=== PATIENT | female | born 1990 | race African-American/Black ===

== ENCOUNTER 2016-09-10 06:14 | Emergency (ER) | payer SELFPAY ==
[~2016-09-10] VITALS: Ht 160 cm; Wt 103.6 kg
[~2016-09-10 06:14] MED LIST: ALDACTONE 25MG25 M1 PO; AMOXICILLIN 8751 TAB PO; BACTRIM DS 8001 TAB PO; CATAPRES 0.1MG0.1 MG PO; CATAPRES0.2 MG PO; CATAPRES0.3 MG PO; CELLCEPT 250MG250 MG PO; CEPHALEXIN500 M1 PO; COUMADIN 22.5 MG/TAB PO; COUMADIN 5MG5 MG/TAB PO; COZAAR 50MG50 MG/TAB PO; DILAUDID 2MG TAB2 MG; LASIX 20MG TABL20 MG PO; LOVENOX120 MG/0.8 SC; MICROZIDE12.5 MG PO; MS CONTIN 115 MG/TAB PO; NEURONTIN300 MG/CAP PO; NORCO 325 MG-101 TAB PO; NORCO 325 MG-51 TAB PO; NORVASC 10MG10 MG PO; NORVASC 5MG5 MG/TAB PO; OXY IR5 MG PO; PERCOCET 325 MG1 TA2 PO; PHENERGAN 25 TA25 MG PO; PLAQUENIL 200M200 MG PO; PREDNISONE20 MG PO; PRINIVIL10 MG PO; ULTRAM 50MG TAB50 MG PO; ZOFRAN8 MG PO
[2016-09-10 06:16] VITALS: TEMP 99.3
[2016-09-10] MEDS ORDERED: PRINIVIL10 MG PO (07:10)
[2016-09-10] MEDS ORDERED: NORCO 325 MG-51 TAB PO (07:10)
[2016-09-10 07:54] LABS: MEAN CELL VOLUME 85 fl (80.0-100.0); MEAN CORPUSCULAR HGB CONC 31 g/dl (33.0-37.0); MEAN PLATELET VOLUME 11.7 fl (7.4-10.4); PLATELET COUNT 146 K/mm3 (130-400); RED BLOOD COUNT 3.67 M/mm3 (4.10-5.30); REDCELL DISTRIBUTION WIDTH-CV 15.2 % (11.5-14.5); WHITE BLOOD COUNT 4.2 K/mm3 (4.8-10.8)
[2016-09-10 08:03] LABS: PROTHROMBIN TIME 41.2 SECONDS (9.7-12.8)
[2016-09-10 08:06] LABS: INR 3.6 (0.8-3.0)
[2016-09-10 08:16] LABS: ADD PATHOLOGY DIFF REVIEW NO; HEMATOCRIT 31.1 % (37.0-47.0); HEMOGLOBIN 9.7 g/dl (12.5-16.0); MEAN CORPUSCULAR HEMOGLOBIN 26 pg (27.0-31.0)
[2016-09-10 08:21] LABS: BAND 14 % (0-10); EOSINOPHIL 2 % (0-4); NEUTROPHILS 62 % (42.0-75.2); TOTAL CELLS COUNTED 100
[2016-09-10 08:23] LABS: ALBUMIN 2.3 gm/dL (3.5-5.0); BILIRUBIN,TOTAL 0.4 mg/dL (0.0-1.0); C-REACTIVE PROTEIN 3.6 mg/dL (0.0-0.9); CALCIUM 7.6 mg/dL (8.4-10.2); CREATININE, serum 0.92 mg/dL (0.52-1.25); POTASSIUM 4.3 mmol/L (3.4-5.0); TOTAL PROTEIN 6.2 gm/dL (6.4-8.2)
[2016-09-10 08:31] LABS: TROPONIN-I 0.019 ng/mL (0.000-0.034)
[2016-09-10 10:04] VITALS: BP 140/99; PULSE 88
[2016-09-10 11:09] LABS: ERYTHROCYTE SEDIMENTATION RATE 95 mm/hr (0-20)
== END 2016-09-10 10:04 | disposition home or self-care (01) ==
LOC: COL.ER 06:14
PROVIDERS: Emergency Medicine
DX: R07.9 Chest pain, unspecified (principal); I10 Essential (primary) hypertension
CPT/HCPCS: J1170; J2405

== ENCOUNTER 2016-09-14 15:53 | Emergency (ER) | payer SELFPAY ==
[~2016-09-14] VITALS: Ht 160 cm; Wt 104.5 kg
[2016-09-14 15:55] VITALS: TEMP 99
[2016-09-14 16:45] LABS: INR 4.4 (0.8-3.0); PROTHROMBIN TIME 50.6 SECONDS (9.7-12.8)
[2016-09-14 16:55] LABS: ALBUMIN 2.5 gm/dL (3.5-5.0); BILIRUBIN,TOTAL 0.4 mg/dL (0.0-1.0); C-REACTIVE PROTEIN 6.2 mg/dL (0.0-0.9); CALCIUM 7.8 mg/dL (8.4-10.2); CREATININE, serum 1.02 mg/dL (0.52-1.25); MEAN CELL VOLUME 82 fl (80.0-100.0); MEAN CORPUSCULAR HGB CONC 32 g/dl (33.0-37.0); MEAN PLATELET VOLUME 11.5 fl (7.4-10.4); PLATELET COUNT 166 K/mm3 (130-400); POTASSIUM 4.5 mmol/L (3.4-5.0); RED BLOOD COUNT 3.78 M/mm3 (4.10-5.30); TOTAL PROTEIN 6.8 gm/dL (6.4-8.2); WHITE BLOOD COUNT 3.6 K/mm3 (4.8-10.8)
[2016-09-14 16:58] LABS: ADD PATHOLOGY DIFF REVIEW NO; HEMATOCRIT 30.9 % (37.0-47.0); HEMOGLOBIN 9.9 g/dl (12.5-16.0); MEAN CORPUSCULAR HEMOGLOBIN 26 pg (27.0-31.0)
[2016-09-14 17:04] LABS: TROPONIN-I 0.012 ng/mL (0.000-0.034)
[2016-09-14 17:34] LABS: BAND 2 % (0-10); NEUTROPHILS 70 % (42.0-75.2); TOTAL CELLS COUNTED 100
[2016-09-14 17:36] LABS: ANISOCYTOSIS 1+; HYPOCHROMIA 2+; MICROCYTOSIS 1+; ROULEAUX 1+
[2016-09-14] MEDS ORDERED: PREDNISONE10 MG PO (17:45)
[2016-09-14] MEDS ORDERED: NORCO 325 MG-51 TAB PO (17:45)
[2016-09-14 18:06] VITALS: BP 139/85; PULSE 98
== END 2016-09-14 18:06 | disposition home or self-care (01) ==
LOC: COL.ER 15:53
PROVIDERS: Family Medicine
DX: R07.89 Other chest pain (principal)
CPT/HCPCS: J1170; J1885; J2405; J7512

== ENCOUNTER 2016-11-08 23:43 | Emergency (ER) | payer MEDICAID ==
[~2016-11-08] VITALS: Ht 160 cm; Wt 99.1 kg
[~2016-11-08 23:43] MED LIST changes: +PREDNISONE10 MG PO
[2016-11-08 23:46] VITALS: TEMP 99
[2016-11-09 00:28] LABS: MEAN CELL VOLUME 84 fl (80.0-100.0); MEAN CORPUSCULAR HGB CONC 32 g/dl (33.0-37.0); MEAN PLATELET VOLUME 12.1 fl (7.4-10.4); PLATELET COUNT 185 K/mm3 (130-400); RED BLOOD COUNT 3.88 M/mm3 (4.10-5.30); REDCELL DISTRIBUTION WIDTH-CV 16.6 % (11.5-14.5)
[2016-11-09 00:34] LABS: ADD PATHOLOGY DIFF REVIEW NO; HEMATOCRIT 32.4 % (37.0-47.0); HEMOGLOBIN 10.2 g/dl (12.5-16.0); MEAN CORPUSCULAR HEMOGLOBIN 26 pg (27.0-31.0); PROTHROMBIN TIME 11.1 SECONDS (9.7-12.8)
[2016-11-09 00:37] LABS: ADJUSTED CALCIUM 9.1 mg/dL (8.4-10.2); ALBUMIN 3.1 gm/dL (3.5-5.0); BILIRUBIN,TOTAL 0.4 mg/dL (0.0-1.0); CALCIUM 8.4 mg/dL (8.4-10.2); CREATININE, serum 1.03 mg/dL (0.52-1.25); POTASSIUM 4.5 mmol/L (3.4-5.0); TOTAL PROTEIN 7.3 gm/dL (6.4-8.2)
[2016-11-09 00:47] LABS: ANISOCYTOSIS 1+; BAND 6 % (0-10); NEUTROPHILS 65 % (42.0-75.2); PLATELET ESTIMATE NORMAL (NORMAL); TOTAL CELLS COUNTED 100
[2016-11-09 00:49] LABS: TROPONIN-I 0.029 ng/mL (0.000-0.034)
[2016-11-09] MEDS ORDERED: COUMADIN 5MG5 MG/TAB PO (02:18)
[2016-11-09 03:23] VITALS: BP 158/58; PULSE 81
== END 2016-11-09 03:23 | disposition home or self-care (01) ==
LOC: COL.ER 23:43
PROVIDERS: Physician Assistant
DX: R07.9 Chest pain, unspecified (principal); I73.1 Thromboangiitis obliterans [Buerger's disease]; Z79.01 Long term (current) use of anticoagulants; J45.909 Unspecified asthma, uncomplicated; F17.210 Nicotine dependence, cigarettes, uncomplicated; Z89.022 Acquired absence of left finger(s)
CPT/HCPCS: J1170; J2270; J2405

== ENCOUNTER 2016-11-15 06:52 | Emergency (ER) | payer MEDICAID ==
[~2016-11-15] VITALS: Ht 160 cm; Wt 100.0 kg
[2016-11-15 07:38] LABS: MEAN CELL VOLUME 84 fl (80.0-100.0); MEAN CORPUSCULAR HGB CONC 32 g/dl (33.0-37.0); MEAN PLATELET VOLUME 11.5 fl (7.4-10.4); PLATELET COUNT 195 K/mm3 (130-400); RED BLOOD COUNT 3.66 M/mm3 (4.10-5.30); REDCELL DISTRIBUTION WIDTH-CV 15.9 % (11.5-14.5); WHITE BLOOD COUNT 3.7 K/mm3 (4.8-10.8)
[2016-11-15 07:45] LABS: INR 1.1 (0.8-3.0); PROTHROMBIN TIME 11.7 SECONDS (9.7-12.8)
[2016-11-15 07:48] LABS: PARTIAL THROMBOPLASTIN TIME 31.3 SECONDS (26.0-37.0)
[2016-11-15 07:50] LABS: ADJUSTED CALCIUM 9.2 mg/dL (8.4-10.2); ALBUMIN 2.6 gm/dL (3.5-5.0); BILIRUBIN,TOTAL 0.4 mg/dL (0.0-1.0); C-REACTIVE PROTEIN 8.8 mg/dL (0.0-0.9); CALCIUM 8.1 mg/dL (8.4-10.2); CREATININE, serum 1.06 mg/dL (0.52-1.25); POTASSIUM 4.2 mmol/L (3.4-5.0); TOTAL PROTEIN 6.9 gm/dL (6.4-8.2)
[2016-11-15 07:59] LABS: TROPONIN-I 0.014 ng/mL (0.000-0.034)
[2016-11-15 08:09] LABS: HEMATOCRIT 30.7 % (37.0-47.0); HEMOGLOBIN 9.7 g/dl (12.5-16.0); MEAN CORPUSCULAR HEMOGLOBIN 27 pg (27.0-31.0)
[2016-11-15 08:10] LABS: ADD PATHOLOGY DIFF REVIEW NO
[2016-11-15] MEDS ORDERED: NORCO 325 MG-51 TAB PO (08:24)
[2016-11-15] MEDS ORDERED: CARDIZEM CD 12120 MG PO (08:24)
[2016-11-15 08:53] VITALS: BP 141/91; PULSE 76; TEMP 98.6
[2016-11-15 09:28] LABS: ANISOCYTOSIS 2+; BAND 7 % (0-10); EOSINOPHIL 3 % (0-4); NEUTROPHILS 63 % (42.0-75.2); PLATELET ESTIMATE NORMAL (NORMAL); TOTAL CELLS COUNTED 100
== END 2016-11-15 08:40 | disposition home or self-care (01) ==
LOC: COL.ER 06:52
PROVIDERS: Family Medicine
DX: R07.9 Chest pain, unspecified (principal); R00.0 Tachycardia, unspecified; I73.1 Thromboangiitis obliterans [Buerger's disease]; Z79.01 Long term (current) use of anticoagulants
CPT/HCPCS: J1170; J2550; J7050; Q9967

== ENCOUNTER 2016-12-16 15:38 | Inpatient (IN) | payer MEDICAID ==
[~2016-12-16] VITALS: Ht 160 cm; Wt 104.6 kg
[~2016-12-16 15:38] MED LIST changes: +CARDIZEM CD 12120 MG PO
[2016-12-16 16:41] LABS: BASO % 0.5 % (0.0-2.0); EOS % 0.7 % (0-4.0); GRAN # 2.6 (1.4-6.5); GRAN % 59.6 % (42.2-75.2); LYMPH # 1.1 (1.2-3.4); LYMPH % 25.6 % (20.0-51.0); MEAN CELL VOLUME 85 fl (80.0-100.0); MEAN CORPUSCULAR HGB CONC 31 g/dl (33.0-37.0); MEAN PLATELET VOLUME 10.8 fl (7.4-10.4); MONO # 0.6 (0.1-0.6); MONO % 13.1 % (1.7-9.3); PLATELET COUNT 157 K/mm3 (130-400); RED BLOOD COUNT 3.58 M/mm3 (4.10-5.30); REDCELL DISTRIBUTION WIDTH-CV 16.7 % (11.5-14.5); WHITE BLOOD COUNT 4.3 K/mm3 (4.8-10.8)
[2016-12-16 16:43] LABS: INR 1.1 (0.8-3.0); PROTHROMBIN TIME 11.9 SECONDS (9.7-12.8)
[2016-12-16 16:46] LABS: PARTIAL THROMBOPLASTIN TIME 30.1 SECONDS (26.0-37.0)
[2016-12-16 16:47] LABS: ADJUSTED CALCIUM 8.8 mg/dL (8.4-10.2); ALBUMIN 2.5 gm/dL (3.5-5.0); BILIRUBIN,TOTAL 0.4 mg/dL (0.0-1.0); CALCIUM 7.6 mg/dL (8.4-10.2); CREATININE, serum 0.95 mg/dL (0.52-1.25); POTASSIUM 3.8 mmol/L (3.4-5.0); TOTAL PROTEIN 6.3 gm/dL (6.4-8.2)
[2016-12-16 16:48] LABS: HEMATOCRIT 30.3 % (37.0-47.0); HEMOGLOBIN 9.4 g/dl (12.5-16.0); MEAN CORPUSCULAR HEMOGLOBIN 26 pg (27.0-31.0)
[2016-12-16 16:58] LABS: TROPONIN-I 0.041 ng/mL (0.000-0.034)
[2016-12-16 17:07] LABS: ERYTHROCYTE SEDIMENTATION RATE 71 mm/hr (0-20)
[2016-12-16 20:45] VITALS: BP 125/81; PULSE 83; TEMP 97.2
[2016-12-16 20:49] VITALS: O2SAT 94
[2016-12-16 20:52] VITALS: O2SAT 97
[2016-12-16 20:54] VITALS: O2SAT 97
[2016-12-16 20:55] VITALS: O2SAT 67
[2016-12-16] MEDS ORDERED: PRINIVIL10 MG PO (21:24)
[2016-12-16] MEDS ORDERED: NORVASC2.5 MG PO (21:25)
[2016-12-16] MEDS ORDERED: PLAQUENIL 200M200 MG PO (21:26)
[2016-12-16] MEDS ORDERED: PEPCID40 MG PO (23:49)
[2016-12-17] VITALS (10 sets, daily range): BP systolic 116–137; BP diastolic 77–93; PULSE 76–95; TEMP 97.2–98.8; O2SAT 73–91
[2016-12-17 00:36] LABS: MAGNESIUM 1.6 mg/dL (1.6-2.3)
[2016-12-17 05:37] LABS: BASO % 0.3 % (0.0-2.0); EOS % 0.8 % (0-4.0); GRAN # 2.4 (1.4-6.5); GRAN % 61.5 % (42.2-75.2); LYMPH % 25.5 % (20.0-51.0); MEAN CELL VOLUME 86 fl (80.0-100.0); MEAN CORPUSCULAR HGB CONC 31 g/dl (33.0-37.0); MEAN PLATELET VOLUME 11.3 fl (7.4-10.4); MONO # 0.5 (0.1-0.6); MONO % 11.9 % (1.7-9.3); PLATELET COUNT 143 K/mm3 (130-400); RED BLOOD COUNT 3.34 M/mm3 (4.10-5.30); REDCELL DISTRIBUTION WIDTH-CV 16.6 % (11.5-14.5); WHITE BLOOD COUNT 3.9 K/mm3 (4.8-10.8)
[2016-12-17 05:46] LABS: HEMATOCRIT 28.7 % (37.0-47.0); HEMOGLOBIN 8.9 g/dl (12.5-16.0); MEAN CORPUSCULAR HEMOGLOBIN 27 pg (27.0-31.0)
[2016-12-17 05:47] LABS: PROTHROMBIN TIME 11.5 SECONDS (9.7-12.8)
[2016-12-17 06:07] LABS: CALCIUM 7.3 mg/dL (8.4-10.2); CREATININE, serum 0.81 mg/dL (0.52-1.25); POTASSIUM 3.9 mmol/L (3.4-5.0)
[2016-12-17 06:19] LABS: TROPONIN-I 0.033 ng/mL (0.000-0.034)
[2016-12-18 04:11] VITALS: BP 149/92; PULSE 94; TEMP 99.3
[2016-12-18 07:55] VITALS: BP 129/96; PULSE 93; TEMP 100.6
[2016-12-18 12:24] VITALS: BP 158/103; PULSE 105; TEMP 98.6
[2016-12-18] MEDS ORDERED: COLCRYS0.6 MG PO (14:05)
[2016-12-18] MEDS ORDERED: COUMADIN 5MG5 MG/TAB PO (14:05)
[2016-12-18] MEDS ORDERED: PREDNISONE20 MG PO (14:08)
[2016-12-18] MEDS ORDERED: PERCOCET 325 MG1 TA2 PO (14:09)
[2016-12-18] MEDS ORDERED: OXYCONTIN15 MG PO (14:09)
[2016-12-18 14:16] LABS: PH 6 (5-8); URINE APPEARANCE Hazy; URINE BACTERIA Rare /hpf; URINE BILIRUBIN Negative (NEGATIVE); URINE BLOOD 1+ (NEGATIVE); URINE COLOR Yellow; URINE GLUCOSE Negative (NEGATIVE); URINE KETONE Negative (NEGATIVE); URINE UROBILINOGEN Negative (NEGATIVE)
== END 2016-12-18 15:09 | disposition home or self-care (01) | DRG 313 ==
LOC: COL.ER 15:38 → ICU 19:55 → MEDICAL 19:55 → ICU 20:40 → MEDICAL 12-17 21:54
PROVIDERS: Emergency Medicine; Internal Medicine; Nurse Practitioner Family
DX: R07.89 Other chest pain (principal); I31.9 Disease of pericardium, unspecified; I10 Essential (primary) hypertension; I73.00 Raynaud's syndrome without gangrene; I73.1 Thromboangiitis obliterans [Buerger's disease]; D64.9 Anemia, unspecified; M32.14 Glomerular disease in systemic lupus erythematosus; Z87.891 Personal history of nicotine dependence; Z91.14 Patient's other noncompliance with medication regimen
CPT/HCPCS: 99223-AI; 99239; J1650; J2270; J2405; J3010; J7030; J7040; J7050; J7512; Q9967

== ENCOUNTER 2019-02-15 20:35 | Emergency (ER) | payer MEDICARE ==
[~2019-02-15] VITALS: Ht 160 cm; Wt 97.3 kg
[~2019-02-15 20:35] MED LIST changes: +COLCRYS0.6 MG PO; +NORVASC2.5 MG PO; +OXYCONTIN15 MG PO; +PEPCID40 MG PO
[2019-02-15 20:49] VITALS: TEMP 97
[2019-02-15 22:15] LABS: HEMATOCRIT 25.9 % (37.0-47.0); HEMOGLOBIN 7.7 g/dl (12.5-16.0); MEAN CELL VOLUME 87 fl (80.0-100.0); MEAN CORPUSCULAR HEMOGLOBIN 26 pg (27.0-31.0); MEAN CORPUSCULAR HGB CONC 30 g/dl (33.0-37.0); MEAN PLATELET VOLUME 9.7 fl (7.4-10.4); PLATELET COUNT 119 K/mm3 (130-400); RED BLOOD COUNT 2.97 M/mm3 (4.10-5.30); REDCELL DISTRIBUTION WIDTH-CV 18.3 % (11.5-14.5)
[2019-02-15 22:19] LABS: INR 0.9 (0.8-3.0); PROTHROMBIN TIME 10.3 SECONDS (9.7-12.8)
[2019-02-15 22:24] LABS: BILIRUBIN,TOTAL 0.2 mg/dL (0.0-1.0); CALCIUM 8.2 mg/dL (8.4-10.2); CREATININE, serum 2.34 (0.52-1.25); POTASSIUM 4.3 mmol/L (3.4-5.0); TOTAL PROTEIN 6.5 gm/dL (6.4-8.2)
[2019-02-15 22:43] LABS: ANISOCYTOSIS 1+; BAND 11 % (0-10); HYPOCHROMIA 1+; LYMPHOCYTE 20 % (20.0-51.0); NEUTROPHILS 60 % (42.0-75.2); PLATELET ESTIMATE DECREASED (NORMAL)
[2019-02-15 22:44] LABS: SCHISTOCYTES 1+
[2019-02-15 22:45] LABS: SPHEROCYTE 1+
[2019-02-15 22:46] LABS: TROPONIN-I 4.59 ng/mL (0.000-0.035)
[2019-02-16 00:51] VITALS: BP 161/96; PULSE 86
== END 2019-02-16 00:45 | disposition short-term general hospital (02) ==
LOC: COL.ER 20:35
PROVIDERS: Emergency Medicine
DX: I10 Essential (primary) hypertension (principal); R07.9 Chest pain, unspecified; D64.9 Anemia, unspecified; R79.89 Other specified abnormal findings of blood chemistry; Z89.022 Acquired absence of left finger(s); I73.00 Raynaud's syndrome without gangrene; Z87.891 Personal history of nicotine dependence
CPT/HCPCS: J0780; J1170; J1885; J7030; J7050

== ENCOUNTER 2019-02-21 21:25 | Observation (INO) | payer MEDICARE, MEDICAID ==
[~2019-02-21] VITALS: Ht 160 cm; Wt 99.9 kg
[2019-02-21 22:44] LABS: MEAN CELL VOLUME 87 fl (80.0-100.0); MEAN CORPUSCULAR HGB CONC 31 g/dl (33.0-37.0); MEAN PLATELET VOLUME 9.7 fl (7.4-10.4); PLATELET COUNT 173 K/mm3 (130-400); REDCELL DISTRIBUTION WIDTH-CV 18.7 % (11.5-14.5)
[2019-02-21 22:51] LABS: HEMOGLOBIN 8.3 g/dl (12.5-16.0); MEAN CORPUSCULAR HEMOGLOBIN 27 pg (27.0-31.0)
[2019-02-21 22:54] LABS: ALBUMIN 2.7 gm/dL (3.5-5.0); BILIRUBIN,TOTAL 0.1 mg/dL (0.0-1.0); C-REACTIVE PROTEIN 1.1 mg/dL (0.0-0.9); CALCIUM 7.4 mg/dL (8.4-10.2); CREATININE, serum 1.76 (0.52-1.25); POTASSIUM 3.7 mmol/L (3.4-5.0); TOTAL PROTEIN 5.9 gm/dL (6.4-8.2)
[2019-02-21 22:59] LABS: ANISOCYTOSIS 2+; BAND 1 % (0-10); EOSINOPHIL 1 % (0-4); LYMPHOCYTE 15 % (20.0-51.0); METAMYELOCYTE 1 % (0-0); NEUTROPHILS 73 % (42.0-75.2); PLATELET ESTIMATE NORMAL (NORMAL)
[2019-02-21 23:04] LABS: TROPONIN-I 2.13 ng/mL (0.000-0.035)
--- NOTE | 2019-02-22 04:00 | NUR ---
Phone report received from Priscilla DOOLEY in ED.
--- NOTE | 2019-02-22 04:10 | NUR ---
Pt arrived via WC from ED X1 staff assist. Pt ambulatory in room requesting use of the toilet. Admission assessment complete. Pt currently wearing personal pants and socks at this time. Moved freely with no weakness or unsteady ambulation noted at this time.
[2019-02-22] MEDS ORDERED: ZOLOFT 50MG50 MG PO (04:44)
[2019-02-22] MEDS ORDERED: DILAUDID 2MG TAB2 MG PO (04:45)
[2019-02-22] MEDS ORDERED: COREG 25MG25 MG/TAB PO (04:47)
[2019-02-22] MEDS ORDERED: CARDURA4 MG PO (04:48)
[2019-02-22] MEDS ORDERED: PREDNISONE20 MG PO (04:48)
[2019-02-22] MEDS ORDERED: COLCRYS0.6 MG PO (04:51)
[2019-02-22] MEDS ORDERED: ASPIRIN 81M81 MG/TA2 PO (04:52)
--- NOTE | 2019-02-22 05:20 | NUR ---
PRN dose of Fentanyl adminstered. Pt reports increased feeling of anxiety. When talking to pt, pt started to cry. This nurse offered other solutions including television, medication following phone call to auto parts salesperson provider, sitting with the pt, back rub, encouraging the pt to talk through feelings. Pt declined all offers except the medication reporting "I know I am okay, I will just wait for the medication to wear off. I know its from the fentanyl and it will wear off soon. I just hate feeling this way." Pt encouraged to call nurse with anything and call light with in reach.
[2019-02-22 05:59] LABS: BASO % 0.2 % (0.0-2.0); EOS % 0.4 % (0-4.0); GRAN # 4.4 (1.4-6.5); GRAN % 85.1 % (42.2-75.2); LYMPH # 0.5 (1.2-3.4); MEAN CELL VOLUME 88 fl (80.0-100.0); MEAN CORPUSCULAR HGB CONC 30 g/dl (33.0-37.0); MONO # 0.2 (0.1-0.6); MONO % 3.9 % (1.7-9.3); PLATELET COUNT 194 K/mm3 (130-400); RED BLOOD COUNT 3.13 M/mm3 (4.10-5.30); REDCELL DISTRIBUTION WIDTH-CV 18.7 % (11.5-14.5)
[2019-02-22 06:00] LABS: HEMATOCRIT 27.6 % (37.0-47.0); HEMOGLOBIN 8.2 g/dl (12.5-16.0); MEAN CORPUSCULAR HEMOGLOBIN 26 pg (27.0-31.0)
[2019-02-22 06:04] LABS: CALCIUM 7.5 mg/dL (8.4-10.2); CREATININE, serum 1.73 (0.52-1.25)
[2019-02-22 06:24] LABS: MAGNESIUM 1.4 mg/dL (1.6-2.3)
--- NOTE | 2019-02-22 07:45 | NUR ---
Bedside report provided to Shannan DOOLEY. Pt offered PO Dilaudid for reports of 8/10 chest pain. Pt refused requesting IV.
--- NOTE | 2019-02-22 07:50 | NUR ---
Pt taking off monitoring equipment, but placed back on by nurse and explained while she is in ICU she will need to be closely monitored and VS taken frequently; pt understood. Pt asking for IV dilaudid, hospitalist contacted to change PO dose to IV; pt got one IV dose of dilaudid. Pt has breakfast in room. 0845: Following administration of IV dilaudid, pt states pain went from 8/10 to 5/10. Pt sp02 is 98-100% on RA following removing NC. VSS. 1030: Pt EJ site dressing changed.
[2019-02-22 08:00] VITALS: BP 122/84; PULSE 71; TEMP 98.5
--- NOTE | 2019-02-22 08:15 | NUR ---
Pt states she always has intermittent tenderness behind bilateral calves. Currently she states bilat tenderness is present, but says its not bothering her to much; unable to rate pain on numeric scale.
[2019-02-22 08:22] VITALS: BP 145/100; PULSE 74; TEMP 98.6
--- NOTE | 2019-02-22 10:22 | NUR ---
SW met with the patient to discuss a discharge plan. The patient lives in [place] with her dad. The pt does not use DME and reports independence with ADLs. The pt's PCP is APRYL Tam and pt receives her medications from [facility]. The pt may need medication assistance upon discharge if insurance has not been activated. The pt does not have advanced directives in the EMR and was not interested in a DPOA-HC form. The pt plans to return home upon discharge. SW will continue to follow to assist with any discharge needs.
[2019-02-22 12:00] VITALS: BP 156/90; PULSE 75; TEMP 97.7
--- NOTE | 2019-02-22 12:16 | NUR ---
MANUAL BP CONDUCTED. PT TAKING OFF MONITOR EQUIPMENT. BP 156/90 ON RA.
[2019-02-22 16:00] VITALS: BP 120/99; PULSE 80; TEMP 97.7
--- NOTE | 2019-02-22 16:10 | NUR ---
PT D/C EDUCATION COMPLETED. PT AMBULATING IN ROOM. PT OFFERED W/C TO LEAVE DEPT/HOSPITAL. PT HAS FAMILY MEMBER IN ROOM WHO WILL BE DRIVING PT HOME. ALL DOCUMENTS SIGNED. PT RECEIVING VOUCHER FOR COLCHICINE MEDICATION (5 TABS PO BID).
--- NOTE | 2019-02-22 16:17 | NUR ---
The patient is to discharge home today, 02/22. SW provided a medication voucher to the patient. supervisor tumbling and rolling was informed.
[2019-02-22 16:25] VITALS: BP 134/94; PULSE 79; TEMP 97.9
--- NOTE | 2019-02-22 16:28 | NUR ---
PT DENIED W/C AND AMBULATED OUT ICU WITH FAMILY. PT HAS ALL PAPERWORK. PT PROVIDED SHORTS BY SOCIAL WORK. LEFT EJ IV D/C.
== END 2019-02-22 16:28 | disposition home or self-care (01) ==
LOC: COL.ER 21:25 → ICU 02-22 02:50
PROVIDERS: Emergency Medicine; Nurse Practitioner; ADMIT Hospitalist
DX: M32.12 Pericarditis in systemic lupus erythematosus (principal); I73.00 Raynaud's syndrome without gangrene; M32.14 Glomerular disease in systemic lupus erythematosus; D63.8 Anemia in other chronic diseases classified elsewhere; I15.0 Renovascular hypertension; I42.9 Cardiomyopathy, unspecified; I10 Essential (primary) hypertension; I73.1 Thromboangiitis obliterans [Buerger's disease]; Z89.022 Acquired absence of left finger(s); Z79.899 Other long term (current) drug therapy; Z87.891 Personal history of nicotine dependence; Z79.82 Long term (current) use of aspirin; K21.9 Gastro-esophageal reflux disease without esophagitis
CPT/HCPCS: G0378; J1170; J1200; J2405; J3010; J3475; J7512; J7517

== ENCOUNTER 2019-03-27 06:44 | Emergency (ER) | payer MEDICAID ==
[~2019-03-27] VITALS: Ht 152.4 cm; Wt 91.8 kg
[~2019-03-27 06:44] MED LIST changes: +ASPIRIN 81M81 MG/TA2 PO; +CARDURA4 MG PO; +COREG 25MG25 MG/TAB PO; +DILAUDID 2MG TAB2 MG PO; +ZOLOFT 50MG50 MG PO
[2019-03-27 06:48] VITALS: TEMP 98.4
[2019-03-27 07:26] LABS: BASO % 0.9 % (0.0-2.0); EOS # 0.1 (0.0-0.7); EOS % 1.8 % (0-4.0); GRAN % 60.1 % (42.2-75.2); LYMPH # 0.8 (1.2-3.4); LYMPH % 22.8 % (20.0-51.0); MEAN CELL VOLUME 86 fl (80.0-100.0); MEAN CORPUSCULAR HGB CONC 31 g/dl (33.0-37.0); MEAN PLATELET VOLUME 10.9 fl (7.4-10.4); MONO # 0.5 (0.1-0.6); MONO % 14.1 % (1.7-9.3); PLATELET COUNT 117 K/mm3 (130-400); RED BLOOD COUNT 3.44 M/mm3 (4.10-5.30); REDCELL DISTRIBUTION WIDTH-CV 16.7 % (11.5-14.5)
[2019-03-27 07:32] LABS: HEMATOCRIT 29.6 % (37.0-47.0); HEMOGLOBIN 9.1 g/dl (12.5-16.0); MEAN CORPUSCULAR HEMOGLOBIN 26 pg (27.0-31.0)
[2019-03-27 07:39] LABS: ALANINE AMINOTRANSFERASE < 6 U/L (9-52); ALBUMIN 3.1 gm/dL (3.5-5.0); ALKALINE PHOSPHATASE 75 U/L (50-136); ANION GAP 7 mmol/L (7-16); AST,SGOT 33 U/L (15-37); BILIRUBIN,TOTAL 0.2 mg/dL (0.0-1.0); BLOOD UREA NITROGEN 22 mg/dL (7-17); CALCIUM 8.4 mg/dL (8.4-10.2); CARBON DIOXIDE 19 mmol/L (22-30); CHLORIDE 112 mmol/L (98-107); CREATININE, serum 2.29 (0.52-1.25); GLUCOSE 83 mg/dL (74-106); LIPASE 71 U/L (23-300); MAGNESIUM 1.6 mg/dL (1.6-2.3); SODIUM 138 mmol/L (137-145); TOTAL PROTEIN 6.8 gm/dL (6.4-8.2)
[2019-03-27 07:50] LABS: ERYTHROCYTE SEDIMENTATION RATE > 140 mm/hr (0-20)
[2019-03-27] MEDS ORDERED: CELLCEPT 5500 MG/TAB PO (07:55)
[2019-03-27] MEDS ORDERED: DAPSONE 25MG TA25 MG PO (07:55)
[2019-03-27 08:28] LABS: COLLECTION METHOD CLEAN CATCH
[2019-03-27 08:43] LABS: MUCOUS Present /lpf; PH 6 (5-8); SQUAMOUS EPITHELIAL None Seen /hpf; URINE APPEARANCE Clear; URINE BACTERIA Rare /hpf; URINE BILIRUBIN Negative (NEGATIVE); URINE BLOOD 2+ (NEGATIVE); URINE COLOR Yellow; URINE GLUCOSE Negative (NEGATIVE); URINE KETONE Negative (NEGATIVE); URINE LEUKOCYTE ESTERASE Negative (NEGATIVE); URINE NITRATE Negative (NEGATIVE); URINE PROTEIN(semi-quant) 3+ (NEGATIVE); URINE UROBILINOGEN Negative (NEGATIVE)
[2019-03-27 10:21] VITALS: BP 155/96; PULSE 82
== END 2019-03-27 10:21 | disposition short-term general hospital (02) ==
LOC: COL.ER 06:44
PROVIDERS: Emergency Medicine
DX: M32.12 Pericarditis in systemic lupus erythematosus (principal); I73.1 Thromboangiitis obliterans [Buerger's disease]; N05.9 Unspecified nephritic syndrome with unspecified morphologic changes
CPT/HCPCS: J1170; J2930; J7030; J7050

== ENCOUNTER 2019-05-31 09:19 | Emergency (ER) | payer SELFPAY ==
[~2019-05-31] VITALS: Ht 160 cm; Wt 101.5 kg
[~2019-05-31 09:19] MED LIST changes: +CELLCEPT 5500 MG/TAB PO; +DAPSONE 25MG TA25 MG PO
[2019-05-31 09:22] VITALS: BP 214/109
[2019-05-31] MEDS ORDERED: NORVASC 5MG5 MG/TAB PO (09:29)
[2019-05-31] MEDS ORDERED: COREG12.5 MG PO (09:30)
[2019-05-31] MEDS ORDERED: PREDNISONE20 MG PO (09:30)
[2019-05-31] MEDS ORDERED: LIPITOR 40MG TA40 MG PO (09:31)
[2019-05-31 10:07] LABS: BASO % 0.1 % (0.0-2.0); EOS % 0.1 % (0-4.0); GRAN # 11.3 (1.4-6.5); LYMPH # 1.3 (1.2-3.4); LYMPH % 9.6 % (20.0-51.0); MEAN CELL VOLUME 88 fl (80.0-100.0); MEAN CORPUSCULAR HGB CONC 30 g/dl (33.0-37.0); MEAN PLATELET VOLUME 11.2 fl (7.4-10.4); MONO # 0.8 (0.1-0.6); MONO % 5.6 % (1.7-9.3); PLATELET COUNT 196 K/mm3 (130-400); RED BLOOD COUNT 3.66 M/mm3 (4.10-5.30); REDCELL DISTRIBUTION WIDTH-CV 17.2 % (11.5-14.5)
[2019-05-31 10:08] LABS: HEMATOCRIT 32.3 % (37.0-47.0); HEMOGLOBIN 9.8 g/dl (12.5-16.0); MEAN CORPUSCULAR HEMOGLOBIN 27 pg (27.0-31.0)
[2019-05-31 10:19] LABS: ALBUMIN 2.7 gm/dL (3.5-5.0); BILIRUBIN,TOTAL 0.2 mg/dL (0.0-1.0); C-REACTIVE PROTEIN 4.8 mg/dL (0.0-0.9); CALCIUM 7.9 mg/dL (8.4-10.2); CREATININE, serum 1.58 (0.52-1.25); TOTAL PROTEIN 5.4 gm/dL (6.4-8.2)
[2019-05-31] MEDS ORDERED: AMOXICILLIN 8751 TAB PO (10:56)
[2019-05-31] MEDS ORDERED: NORCO 325 MG-51 TAB PO (10:57)
[2019-05-31 11:12] VITALS: PULSE 87; TEMP 97.9
== END 2019-05-31 11:21 | disposition home or self-care (01) ==
LOC: COL.ER 09:19
PROVIDERS: Family Medicine
DX: J18.1 Lobar pneumonia, unspecified organism (principal); I10 Essential (primary) hypertension; Z87.39 Personal history of other diseases of the musculoskeletal system and connective tissue
CPT/HCPCS: J0696

== ENCOUNTER 2019-06-06 23:59 | Inpatient (IN) | payer MEDICARE ==
[~2019-06-06] VITALS: Ht 160 cm; Wt 100.6 kg
[~2019-06-06 23:59] MED LIST changes: +COREG12.5 MG PO; +LIPITOR 40MG TA40 MG PO
[2019-06-07 00:40] LABS: BASO % 0.4 % (0.0-2.0); EOS # 0.1 (0.0-0.7); EOS % 1.4 % (0-4.0); GRAN # 3.7 (1.4-6.5); GRAN % 64.3 % (42.2-75.2); HEMATOCRIT 32.1 % (37.0-47.0); HEMOGLOBIN 9.6 g/dl (12.5-16.0); LYMPH # 1.4 (1.2-3.4); LYMPH % 24.9 % (20.0-51.0); MEAN CELL VOLUME 87 fl (80.0-100.0); MEAN CORPUSCULAR HEMOGLOBIN 26 pg (27.0-31.0); MEAN CORPUSCULAR HGB CONC 30 g/dl (33.0-37.0); MEAN PLATELET VOLUME 10.1 fl (7.4-10.4); MONO # 0.4 (0.1-0.6); MONO % 7.2 % (1.7-9.3); PLATELET COUNT 270 K/mm3 (130-400); RED BLOOD COUNT 3.68 M/mm3 (4.10-5.30); REDCELL DISTRIBUTION WIDTH-CV 17.2 % (11.5-14.5)
[2019-06-07 01:00] LABS: BILIRUBIN,TOTAL 0.1 mg/dL (0.0-1.0); C-REACTIVE PROTEIN 0.6 mg/dL (0.0-0.9); CALCIUM 7.8 mg/dL (8.4-10.2); CREATININE, serum 1.91 (0.52-1.25); MAGNESIUM 1.4 mg/dL (1.6-2.3); TOTAL PROTEIN 5.8 gm/dL (6.4-8.2)
[2019-06-07 01:15] LABS: TROPONIN-I 0.131 ng/mL (0.000-0.035)
[2019-06-07 01:26] LABS: ERYTHROCYTE SEDIMENTATION RATE 38 mm/hr (0-20)
[2019-06-07 01:31] LABS: COLLECTION METHOD CLEAN CATCH
[2019-06-07 01:42] LABS: MUCOUS Present /lpf; PH 6 (5-8); SQUAMOUS EPITHELIAL 0-2 /hpf; URINE APPEARANCE Clear; URINE BACTERIA Rare /hpf; URINE BILIRUBIN Negative (NEGATIVE); URINE BLOOD 1+ (NEGATIVE); URINE COLOR Straw; URINE GLUCOSE Negative (NEGATIVE); URINE KETONE Negative (NEGATIVE); URINE LEUKOCYTE ESTERASE Negative (NEGATIVE); URINE NITRATE Negative (NEGATIVE); URINE PROTEIN(semi-quant) 2+ (NEGATIVE); URINE RBC 0-2 /hpf; URINE UROBILINOGEN Negative (NEGATIVE)
--- NOTE | 2019-06-07 08:30 | NUR ---
Patient to room 353 from ED. Patient oriented to room and call light. Assessment complete and charted. Patient A&O, rating pain all over body 02/04. IV CDI. VSS. BP hypertensive. No further needs expressed from patient. Call light within reach
[2019-06-07 09:11] VITALS: BP 167/92; PULSE 93; TEMP 97.1
[2019-06-07 18:29] VITALS: BP 206/111; PULSE 90; TEMP 98
--- NOTE | 2019-06-07 18:31 | NUR ---
Patient A&O. VSS, BP hypertensive and doctor aware. IV CDI. Patient reporting pain all over body and has been complaining that her pain is not under control. No reported chest pain. No further needs expressed from patient. Call light within reach
[2019-06-07 19:21] VITALS: BP 193/100; PULSE 89; TEMP 98.9
--- NOTE | 2019-06-07 19:32 | NUR ---
Pt resting in bed. No distress noted. Respirations even and unlabored. Lungs clear to ausculation. Abdomen soft, nontender. BS+. 1+ edema noted to BLE. Pt c/o pain 8/10 in "back, arms and legs". Pt states she is "puffy". INT to L AC. Telemetry in place. Pt denies further needs at this time .
--- NOTE | 2019-06-07 20:14 | NUR ---
Pt requesting PRN pain medication for generalized pain in "back, arms and legs". She describes it as aching/tight due to being "puffy". PRN Morphine given. Will reassess for effectiveness.
--- NOTE | 2019-06-07 20:39 | NUR ---
Dr. Daly called about patients elevated blood pressure 193/100. Orders received to increase frequency of PRN Hydralazine.
--- NOTE | 2019-06-07 21:39 | NUR ---
Pt reports that PRN Morphine helped decrease pain but it is increasing again to a 02/04. PRN Dilaudid given. will continue to monitor.
[2019-06-07 23:25] VITALS: BP 167/104; PULSE 98; TEMP 98.4
--- NOTE | 2019-06-08 04:20 | NUR ---
Pt c/o pain 8/10 - generalized, aching. Pt reports that pain medication does help "take the edge off" the pain, but it does not last very long. PRN pain medication given. Pt is alert and oriented.
[2019-06-08 06:55] LABS: EOS # 0.1 (0.0-0.7); EOS % 0.9 % (0-4.0); GRAN # 4.8 (1.4-6.5); GRAN % 72.1 % (42.2-75.2); LYMPH # 1.2 (1.2-3.4); LYMPH % 18.7 % (20.0-51.0); MEAN CELL VOLUME 87 fl (80.0-100.0); MEAN CORPUSCULAR HGB CONC 30 g/dl (33.0-37.0); MEAN PLATELET VOLUME 11.7 fl (7.4-10.4); MONO # 0.5 (0.1-0.6); MONO % 7.1 % (1.7-9.3); PLATELET COUNT 295 K/mm3 (130-400); RED BLOOD COUNT 3.48 M/mm3 (4.10-5.30); REDCELL DISTRIBUTION WIDTH-CV 17.2 % (11.5-14.5)
[2019-06-08 07:00] VITALS: BP 185/108
[2019-06-08 07:04] LABS: CALCIUM 7.8 mg/dL (8.4-10.2); CREATININE, serum 1.81 (0.52-1.25); POTASSIUM 3.9 mmol/L (3.4-5.0)
[2019-06-08 07:08] LABS: HEMATOCRIT 30.4 % (37.0-47.0); HEMOGLOBIN 9.1 g/dl (12.5-16.0); MEAN CORPUSCULAR HEMOGLOBIN 26 pg (27.0-31.0)
--- NOTE | 2019-06-08 07:10 | NUR ---
Pt sleeping this AM. She has rested periodically throughout the night with consistent compalints of pain- generalized. Blood pressure this AM is elevated. PRN blood pressure medication administered.
[2019-06-08 07:30] VITALS: BP 183/105; PULSE 91; TEMP 98.3
--- NOTE | 2019-06-08 08:42 | NUR ---
Pt awake and alert upon entry, some C/O pain, medications given for relief, shift assessments complete, left Pt call light in reach, bed in lowest position.
--- NOTE | 2019-06-08 10:16 | NUR ---
Initial visit; Patient thanked Reducing System Operator for looking in on her and offering God's blessings. Patient's family arrived demonstrating that Génesis has a support system.
[2019-06-08 11:50] VITALS: BP 167/92; PULSE 99; TEMP 98.7
[2019-06-08 16:18] VITALS: BP 152/89; PULSE 97; TEMP 99
--- NOTE | 2019-06-08 17:00 | NUR ---
Rail Engineer met with patient to discuss discharge planning. Patient lives in [place] with her two children ages 12 and 6. Patient states she sees Dr. Meeks at [facility] and also obtains medications from them with no difficulty. Patient reports independence with ADLS and has no DME. Patient does not have Advance Directives and is not interested in establishing at this time. Patient plans to return home upon discharge. No additional concerns at this time.
--- NOTE | 2019-06-08 18:19 | NUR ---
Pt restes in room today, some C/o pain throughout the day, medications were given for relief, VS have remained stable.
[2019-06-08 19:55] VITALS: BP 154/101; PULSE 97
--- NOTE | 2019-06-08 21:00 | NUR ---
Shift assessment complete. Patient in bed, awake. States pain is 7/10 in her back. Also states that her IV site was painful with the last administration of pain medication from day RN. IV site noted to be tender, ecchymotic, and slightly reddened. IV removed. New IV placed in left hand, with 2 attempts. Prn pain medication given per request. Denies further needs at this time. Will continue to monitor.
[2019-06-08 23:22] VITALS: BP 185/104; PULSE 94; TEMP 98.7
[2019-06-09] VITALS (9 sets, daily range): BP systolic 137–206; BP diastolic 83–110; PULSE 84–94; TEMP 98.5–98.7
--- NOTE | 2019-06-09 03:30 | NUR ---
HR 130's when ambulating per tele. HR currently 95 at rest. BP elevated at 179/110, with recheck of 206/105. Dr. Bates notified, antihypertensive ordered. Will administer and recheck BP. Patient denies chest pain, and states her back pain is much better. Will continue to monitor.
[2019-06-09 08:12] LABS: BASO % 0.3 % (0.0-2.0); EOS % 0.3 % (0-4.0); GRAN # 4.3 (1.4-6.5); GRAN % 67.3 % (42.2-75.2); HEMOGLOBIN 9.8 g/dl (12.5-16.0); LYMPH # 1.5 (1.2-3.4); LYMPH % 23.8 % (20.0-51.0); MEAN CELL VOLUME 89 fl (80.0-100.0); MEAN CORPUSCULAR HEMOGLOBIN 26 pg (27.0-31.0); MEAN CORPUSCULAR HGB CONC 30 g/dl (33.0-37.0); MEAN PLATELET VOLUME 11.2 fl (7.4-10.4); MONO # 0.4 (0.1-0.6); MONO % 6.9 % (1.7-9.3); PLATELET COUNT 308 K/mm3 (130-400); RED BLOOD COUNT 3.73 M/mm3 (4.10-5.30); REDCELL DISTRIBUTION WIDTH-CV 17.2 % (11.5-14.5)
--- NOTE | 2019-06-09 08:20 | NUR ---
Pt napping upon entry this morning, easily awakened, has some C/O pain, medications given, shift assessments complete, left Pt call light in reach, bed in lowest position.
[2019-06-09 08:34] LABS: CALCIUM 8.2 mg/dL (8.4-10.2); CREATININE, serum 1.83 (0.52-1.25); POTASSIUM 4.6 mmol/L (3.4-5.0)
--- NOTE | 2019-06-09 08:45 | NUR ---
Pt awake and alert this morning, talkative, has C/O pain / discomfort in his right knee, shift assessments complete, left Pt call light in reach, bed in lowest position.
--- NOTE | 2019-06-09 18:26 | NUR ---
Pt rested in the room today, had C/O pain throughout the day, VS have remained stable.
--- NOTE | 2019-06-09 21:10 | NUR ---
Pt sitting up in bed visiting per cell phone. Placed her phone aside while she was assessed. States pain is 8/10. Requesting IV pain med. Dilaudid 0.25mg given. Explained to pt that she will have to ask for pain med since they are ordered PRN. Takes HS meds. INT intact to L hand. Flushes well. UA obtained and sent to lab. Request and given sun. henrique. Tele with SR. Call light within reach.
[2019-06-09 23:12] LABS: URINE PROTEIN:CREAT RATIO 5.86 (0.00-0.14)
[2019-06-10 03:50] VITALS: BP 155/86; PULSE 73
--- NOTE | 2019-06-10 06:18 | NUR ---
Pt asleep on right side. INT remains intact to L hand. O2 on at 2L/NC. Tele with SR. Call light in reach.
--- NOTE | 2019-06-10 06:56 | NUR ---
appears to be sleeping, bedside shift report received from MIAH Guevara
[2019-06-10 08:04] LABS: CALCIUM 8.4 mg/dL (8.4-10.2); CREATININE, serum 1.79 (0.52-1.25); POTASSIUM 4.6 mmol/L (3.4-5.0)
--- NOTE | 2019-06-10 08:40 | NUR ---
c/o pain, medicated with dilaudid 0.25mg slow IV, full assessment completed, see interventions for further info
[2019-06-10 09:43] VITALS: BP 173/108; PULSE 66; TEMP 98.5
[2019-06-10 09:53] VITALS: BP 136/86
--- NOTE | 2019-06-10 10:19 | NUR ---
in bed and appears to be sleeping, lights off, eyes closed, resp quiet and easy
[2019-06-10] MEDS ORDERED: NORVASC 10MG10 MG PO (10:53)
[2019-06-10] MEDS ORDERED: CATAPRES 0.1MG0.1 MG PO (10:53)
[2019-06-10] MEDS ORDERED: COZAAR 25MG25 MG/TAB PO (10:53)
[2019-06-10] MEDS ORDERED: HYGROTON 2525 MG/TAB PO (10:55)
[2019-06-10] MEDS ORDERED: NORCO 325 MG-51 TAB PO (10:58)
--- NOTE | 2019-06-10 11:01 | NUR ---
Dr Daly and care team in to see patient, will plan discharge later
[2019-06-10 11:42] VITALS: BP 112/66; PULSE 77; TEMP 98
--- NOTE | 2019-06-10 13:29 | NUR ---
sitting up in bed eating lunch, will plan to discharge when sister arrives soon
--- NOTE | 2019-06-10 14:05 | NUR ---
TELEMETRY DISCONTINUED, UP AND GETTING DRESSED
--- NOTE | 2019-06-10 14:10 | NUR ---
discharge instructions given to patient and she verbalizes understanding, instructed to her wait and someone would walk her out
--- NOTE | 2019-06-10 14:20 | NUR ---
EXPERIMENTAL TECHNICIAN entered room to walk patient out and patient was already gone
== END 2019-06-10 14:20 | disposition home or self-care (01) | DRG 546 ==
LOC: COL.ER 23:59 → MEDICAL 06-07 07:30
PROVIDERS: Emergency Medicine; Internal Medicine Nephrology; Nurse Practitioner Family; ADMIT Student in an Organized Health Care Education/Training Program
DX: M32.12 Pericarditis in systemic lupus erythematosus (principal); J90 Pleural effusion, not elsewhere classified; I73.1 Thromboangiitis obliterans [Buerger's disease]; I73.00 Raynaud's syndrome without gangrene; M32.14 Glomerular disease in systemic lupus erythematosus; I25.10 Atherosclerotic heart disease of native coronary artery without angina pectoris; I27.20 Pulmonary hypertension, unspecified; D64.9 Anemia, unspecified; I51.7 Cardiomegaly; R79.89 Other specified abnormal findings of blood chemistry; I16.0 Hypertensive urgency; Z87.01 Personal history of pneumonia (recurrent); Z89.112 Acquired absence of left hand; Z87.891 Personal history of nicotine dependence
CPT/HCPCS: 99222-AI; 99232-AI; 99239; J1170; J1644; J2270; J2405; J7512; J7517

== ENCOUNTER 2019-08-12 19:01 | Emergency (ER) | payer MEDICARE ==
[~2019-08-12] VITALS: Ht 160 cm; Wt 86.4 kg
[~2019-08-12 19:01] MED LIST changes: +COZAAR 25MG25 MG/TAB PO; +HYGROTON 2525 MG/TAB PO
[2019-08-12 19:21] VITALS: BP 147/82
[2019-08-12 20:00] LABS: COLLECTION METHOD CLEAN CATCH
[2019-08-12 20:06] LABS: PH 6 (5-8); SQUAMOUS EPITHELIAL 0-2 /hpf; URINE APPEARANCE Hazy; URINE BACTERIA None Seen /hpf; URINE BILIRUBIN Negative (NEGATIVE); URINE BLOOD Negative (NEGATIVE); URINE COLOR Yellow; URINE GLUCOSE Negative (NEGATIVE); URINE KETONE Negative (NEGATIVE); URINE LEUKOCYTE ESTERASE 1+ (NEGATIVE); URINE NITRATE Negative (NEGATIVE); URINE PROTEIN(semi-quant) 2+ (NEGATIVE); URINE UROBILINOGEN Negative (NEGATIVE)
[2019-08-12] MEDS ORDERED: FLAGYL 375375 MG PO (21:13)
[2019-08-12] MEDS ORDERED: MACROBID 1100 MG/CAP PO (21:44)
[2019-08-12 22:00] VITALS: PULSE 75; TEMP 98.4
== END 2019-08-12 22:00 | disposition home or self-care (01) ==
LOC: COL.ER 19:01
PROVIDERS: Family Medicine
DX: N76.0 Acute vaginitis (principal); B96.89 Other specified bacterial agents as the cause of diseases classified elsewhere
CPT/HCPCS: J0696

== ENCOUNTER 2019-08-26 12:03 | Emergency (ER) | payer MEDICARE ==
[~2019-08-26] VITALS: Ht 160 cm; Wt 86.4 kg
[~2019-08-26 12:03] MED LIST changes: +FLAGYL 375375 MG PO; +MACROBID 1100 MG/CAP PO
[2019-08-26 12:20] VITALS: TEMP 98
[2019-08-26 13:07] LABS: BASO % 0.5 % (0.0-2.0); EOS # 0.1 (0.0-0.7); EOS % 2.3 % (0-4.0); GRAN # 2.4 (1.4-6.5); GRAN % 61.9 % (42.2-75.2); LYMPH # 0.9 (1.2-3.4); LYMPH % 23.8 % (20.0-51.0); MEAN CELL VOLUME 87 fl (80.0-100.0); MEAN CORPUSCULAR HGB CONC 30 g/dl (33.0-37.0); MEAN PLATELET VOLUME 11.1 fl (7.4-10.4); MONO # 0.4 (0.1-0.6); MONO % 10.7 % (1.7-9.3); PLATELET COUNT 228 K/mm3 (130-400); RED BLOOD COUNT 3.15 M/mm3 (4.10-5.30); REDCELL DISTRIBUTION WIDTH-CV 18.6 % (11.5-14.5)
[2019-08-26 13:08] LABS: HEMATOCRIT 27.3 % (37.0-47.0); HEMOGLOBIN 8.1 g/dl (12.5-16.0); MEAN CORPUSCULAR HEMOGLOBIN 26 pg (27.0-31.0)
[2019-08-26 13:18] LABS: COLLECTION METHOD CLEAN CATCH
[2019-08-26 13:20] LABS: ALANINE AMINOTRANSFERASE < 6 U/L (9-52); ALBUMIN 3.1 gm/dL (3.5-5.0); ALKALINE PHOSPHATASE 60 U/L (50-136); ANION GAP 6 mmol/L (7-16); AST,SGOT 20 U/L (15-37); BILIRUBIN,TOTAL 0.2 mg/dL (0.0-1.0); BLOOD UREA NITROGEN 24 mg/dL (7-17); CALCIUM 7.8 mg/dL (8.4-10.2); CARBON DIOXIDE 18 mmol/L (22-30); CHLORIDE 117 mmol/L (98-107); CREATININE, serum 1.73 (0.52-1.25); GLUCOSE 86 mg/dL (74-106); POTASSIUM 4.5 mmol/L (3.4-5.0); SODIUM 141 mmol/L (137-145); TOTAL PROTEIN 6.5 gm/dL (6.4-8.2)
[2019-08-26 13:23] LABS: C-REACTIVE PROTEIN < 0.5 mg/dL (0.0-0.9)
[2019-08-26 13:24] LABS: MUCOUS Present /lpf; PH 6 (5-8); URINE APPEARANCE Clear; URINE BACTERIA Rare /hpf; URINE BILIRUBIN Negative (NEGATIVE); URINE BLOOD 1+ (NEGATIVE); URINE COLOR Yellow; URINE GLUCOSE Negative (NEGATIVE); URINE KETONE Negative (NEGATIVE); URINE LEUKOCYTE ESTERASE Negative (NEGATIVE); URINE NITRATE Negative (NEGATIVE); URINE PROTEIN(semi-quant) 2+ (NEGATIVE); URINE RBC 0-2 /hpf; URINE UROBILINOGEN Negative (NEGATIVE)
[2019-08-26 13:42] LABS: TROPONIN-I 0.144 ng/mL (0.000-0.035)
[2019-08-26 13:52] LABS: ERYTHROCYTE SEDIMENTATION RATE 102 mm/hr (0-20)
[2019-08-26 17:38] VITALS: BP 169/72; PULSE 71
== END 2019-08-26 17:38 | disposition short-term general hospital (02) ==
LOC: COL.ER 12:03
PROVIDERS: Emergency Medicine
DX: I31.9 Disease of pericardium, unspecified (principal); R79.89 Other specified abnormal findings of blood chemistry; I10 Essential (primary) hypertension
CPT/HCPCS: J1170; J2405

== ENCOUNTER 2019-09-20 02:42 | Emergency (ER) | payer MEDICARE ==
[~2019-09-20] VITALS: Ht 160 cm; Wt 93.2 kg
[2019-09-20 02:58] VITALS: BP 179/93; PULSE 99; TEMP 99
[2019-09-20] MEDS ORDERED: ATARAX 25MG25 MG/TAB PO (03:24)
== END 2019-09-20 03:45 | disposition home or self-care (01) ==
LOC: COL.ER 02:42
DX: F41.0 Panic disorder [episodic paroxysmal anxiety] (principal); F17.210 Nicotine dependence, cigarettes, uncomplicated

== ENCOUNTER 2019-12-29 10:37 | Emergency (ER) | payer MEDICARE ==
[~2019-12-29] VITALS: Ht 160 cm; Wt 88.6 kg
[~2019-12-29 10:37] MED LIST changes: +ATARAX 25MG25 MG/TAB PO
[2019-12-29 10:41] VITALS: TEMP 97.2
[2019-12-29 11:06] LABS: BASO % 0.3 % (0.0-2.0); EOS # 0.1 (0.0-0.7); EOS % 2.5 % (0-4.0); GRAN # 2.1 (1.4-6.5); GRAN % 63.5 % (42.2-75.2); LYMPH # 0.7 (1.2-3.4); LYMPH % 22.3 % (20.0-51.0); MEAN CELL VOLUME 83 fl (80.0-100.0); MEAN CORPUSCULAR HGB CONC 29 g/dl (33.0-37.0); MEAN PLATELET VOLUME 10.5 fl (7.4-10.4); MONO # 0.4 (0.1-0.6); MONO % 11.1 % (1.7-9.3); PLATELET COUNT 184 K/mm3 (130-400); RED BLOOD COUNT 3.98 M/mm3 (4.10-5.30); REDCELL DISTRIBUTION WIDTH-CV 16.6 % (11.5-14.5)
[2019-12-29 11:07] LABS: HEMOGLOBIN 9.7 g/dl (12.5-16.0); MEAN CORPUSCULAR HEMOGLOBIN 24 pg (27.0-31.0)
[2019-12-29 11:08] LABS: PROTHROMBIN TIME 10.8 SECONDS (9.7-12.8)
[2019-12-29 11:11] LABS: PARTIAL THROMBOPLASTIN TIME 34.6 SECONDS (26.0-37.0)
[2019-12-29 11:18] LABS: ALBUMIN 3.7 gm/dL (3.5-5.0); BILIRUBIN,TOTAL 0.4 mg/dL (0.0-1.0); C-REACTIVE PROTEIN 1.5 mg/dL (0.0-0.9); CALCIUM 9.1 mg/dL (8.4-10.2); CREATININE, serum 2.05 (0.52-1.25); POTASSIUM 4.6 mmol/L (3.4-5.0); TOTAL PROTEIN 7.8 gm/dL (6.4-8.2)
[2019-12-29 11:28] LABS: TROPONIN-I 0.53 ng/mL (0.000-0.035)
[2019-12-29 11:30] LABS: ERYTHROCYTE SEDIMENTATION RATE 88 mm/hr (0-20)
[2019-12-29 13:35] VITALS: BP 146/83; PULSE 83
== END 2019-12-29 13:35 | disposition short-term general hospital (02) ==
LOC: COL.ER 10:37
PROVIDERS: Family Medicine
DX: N18.9 Chronic kidney disease, unspecified (principal); I73.1 Thromboangiitis obliterans [Buerger's disease]; M32.9 Systemic lupus erythematosus, unspecified; I10 Essential (primary) hypertension
CPT/HCPCS: J1170; J2405

== ENCOUNTER 2020-02-20 13:39 | Inpatient (IN) | payer MEDICARE ==
[~2020-02-20] VITALS: Ht 160 cm; Wt 90.4 kg
[2020-02-20 14:32] LABS: ALBUMIN 3.7 gm/dL (3.5-5.0); BASO % 0.4 % (0.0-2.0); BILIRUBIN,TOTAL 0.3 mg/dL (0.0-1.0); CALCIUM 8.8 mg/dL (8.4-10.2); CREATININE, serum 2.48 (0.52-1.25); EOS # 0.1 (0.0-0.7); EOS % 2.7 % (0-4.0); GRAN # 3.1 (1.4-6.5); GRAN % 63.8 % (42.2-75.2); LYMPH # 0.9 (1.2-3.4); LYMPH % 19.2 % (20.0-51.0); MEAN CELL VOLUME 84 fl (80.0-100.0); MEAN CORPUSCULAR HGB CONC 30 g/dl (33.0-37.0); MEAN PLATELET VOLUME 12.3 fl (7.4-10.4); MONO # 0.6 (0.1-0.6); MONO % 12.9 % (1.7-9.3); PLATELET COUNT 260 K/mm3 (130-400); POTASSIUM 4.6 mmol/L (3.4-5.0); RED BLOOD COUNT 3.91 M/mm3 (4.10-5.30); REDCELL DISTRIBUTION WIDTH-CV 16.9 % (11.5-14.5); TOTAL PROTEIN 7.8 gm/dL (6.4-8.2)
[2020-02-20 14:45] LABS: TROPONIN-I 2.19 ng/mL (0.000-0.035)
[2020-02-20 14:47] LABS: HEMATOCRIT 32.9 % (37.0-47.0); HEMOGLOBIN 9.9 g/dl (12.5-16.0); MEAN CORPUSCULAR HEMOGLOBIN 25 pg (27.0-31.0)
--- NOTE | 2020-02-20 17:00 | NUR ---
Patient arrives from ER, report from MIAH Goel. VS obtained, see documentation. Patient states her chest pain is becoming more intense, rates "03/07". Kathy Begum [facility] customer marketing manager updated and household assistant notified of patient report. [id number]- supervisor special effects states that patient will be moved to medical floor.
--- NOTE | 2020-02-20 18:00 | NUR ---
Report to MIAH Dahl on medical. Patient transferred to room 358 by drain technician.
[2020-02-20 18:12] VITALS: BP 141/94; PULSE 73; TEMP 98.5
--- NOTE | 2020-02-20 18:45 | NUR ---
Patient to room 358 by wheelchair from L&D. Patient A&Ox3. Reporting chest pain. Pain medication given when requested. VSS. IV CDI. Oriented patient to room, call light and location. Also visitor policy. No further needs expressed from patient. Call light within reach
--- NOTE | 2020-02-20 20:00 | NUR ---
Report received, assumed care for machinist 2nd shift. Assessment compete. VS stable. A&Ox3. Laying in bed watching tv. Denies nausea/shortness of breath. Tolerating diet. C/O pain to upper abdominal quadrants-rating 8/10 on pain scale-described as constant ache. Plan of care discussed for pain medication/HS medications. Denies questions concerns. Call light in reach. Will monitor.
[2020-02-21 01:18] VITALS: BP 142/75; PULSE 56; TEMP 98.3
[2020-02-21 02:08] LABS: COLLECTION METHOD CLEAN CATCH
[2020-02-21 02:28] LABS: MUCOUS Present /lpf; PH 6 (5-8); URINE APPEARANCE Hazy; URINE BACTERIA Rare /hpf; URINE BILIRUBIN Negative (NEGATIVE); URINE BLOOD Negative (NEGATIVE); URINE COLOR Yellow; URINE GLUCOSE 1+ (NEGATIVE); URINE KETONE Negative (NEGATIVE); URINE LEUKOCYTE ESTERASE Trace (NEGATIVE); URINE NITRATE Negative (NEGATIVE); URINE PROTEIN(semi-quant) 3+ (NEGATIVE); URINE UROBILINOGEN Negative (NEGATIVE)
--- NOTE | 2020-02-21 03:40 | NUR ---
Called with c/o itching. Requesting Benadryl. Dr Bates notified and new orders received and initiated. Discussed change in medication with patient who is irritated and stating she needs the dilaudid for pain. Discussed changing to morphine but still irritated because can only have it every 3 hours instead of every two. Did calm down after learning that morphine may work better for pain than the dilaudid. Will continue to monitor.
[2020-02-21 03:53] VITALS: BP 154/84; PULSE 81; TEMP 98.3
--- NOTE | 2020-02-21 05:40 | NUR ---
Called with c/o IV pump keeping her up and not being able to rest. Refused IV fluids at this time. Will monitor.
[2020-02-21 07:26] VITALS: BP 131/63; PULSE 64; TEMP 98.2
--- NOTE | 2020-02-21 08:29 | NUR ---
Patient alert and oriented, answers questions appropriately. See assessment. Patient dozes off frequently during assessment, each time awakens requests pain medication. States "morphine isn't helping, I need more dilaudid." Notified patient of doctors orders regarding pain medication. Patient then requests zofran. Patient notified zofran is not part of patients medication orders, but I could notify doctor of patients request. When asked, patient denies nausea, but wants the medication "just in case". Reviewed medications with patient. No other c/o at this time.
[2020-02-21 09:30] LABS: BASO % 0.4 % (0.0-2.0); EOS # 0.1 (0.0-0.7); EOS % 2.7 % (0-4.0); GRAN % 68.2 % (42.2-75.2); LYMPH # 0.8 (1.2-3.4); LYMPH % 18.9 % (20.0-51.0); MEAN CELL VOLUME 85 fl (80.0-100.0); MEAN CORPUSCULAR HGB CONC 30 g/dl (33.0-37.0); MEAN PLATELET VOLUME 12.2 fl (7.4-10.4); MONO # 0.4 (0.1-0.6); MONO % 9.4 % (1.7-9.3); PLATELET COUNT 224 K/mm3 (130-400); RED BLOOD COUNT 3.43 M/mm3 (4.10-5.30); REDCELL DISTRIBUTION WIDTH-CV 16.9 % (11.5-14.5)
[2020-02-21 09:31] LABS: HEMOGLOBIN 8.7 g/dl (12.5-16.0); MEAN CORPUSCULAR HEMOGLOBIN 25 pg (27.0-31.0)
[2020-02-21 09:41] LABS: CALCIUM 8.5 mg/dL (8.4-10.2); CREATININE, serum 2.4 (0.52-1.25); POTASSIUM 4.4 mmol/L (3.4-5.0)
[2020-02-21 11:02] VITALS: BP 131/79; PULSE 71; TEMP 98.4
--- NOTE | 2020-02-21 11:02 | NUR ---
SW met with patient to complete intake. Patient states that she lives in [place], [place] with her children. Patient provides that her emergency contact is her sister Ofe [phone]. Patient provides that she does not utilize any DME and is independent with ADL's. Patient states that her PCP is Dr. Meeks, she obtains her medications from [facility], and that she is able to afford her medications. Patient provides that she does not have a DPOA-HC and does not wish to appoint one at this time. Patient provides that she plans to go back home upon discharge when she feels better, she states that she does have transportation upon discharge and has no questions or concerns at this time. SW will continue to follow.
[2020-02-21 15:59] VITALS: BP 143/86; PULSE 66; TEMP 98.8
--- NOTE | 2020-02-21 19:00 | NUR ---
24hour urine collection container in bathroom, awaiting first void.
[2020-02-21 20:00] VITALS: BP 145/90; PULSE 71; TEMP 99.9
--- NOTE | 2020-02-21 20:00 | NUR ---
PATIENT REQUESTED PAIN MEDUCATIONS AND KEPT HAVING DIFFICULTY WITH IV SITE, LEAKS, ATTEMPTS TO EVALUATE IV ALL RUNNING WELL
--- NOTE | 2020-02-21 23:45 | NUR ---
Pt assessment completed, charted, alert, oriented, roomair, independent. Meds provided as per SEP, tolerated well. I/V flushed without complications. PRN pain meds provided as per SEP. No further needs at this time.
[2020-02-22 04:45] VITALS: BP 135/74; PULSE 63; TEMP 98.6
--- NOTE | 2020-02-22 07:47 | NUR ---
Pt had an uneventful night, slept on and off through out the night. Morning meds provided as per SEP. Handover given to the day shift nurse.
[2020-02-22 07:54] LABS: BASO % 0.2 % (0.0-2.0); EOS # 0.1 (0.0-0.7); EOS % 2.1 % (0-4.0); GRAN # 3.6 (1.4-6.5); GRAN % 67.3 % (42.2-75.2); LYMPH # 0.9 (1.2-3.4); MEAN CELL VOLUME 84 fl (80.0-100.0); MEAN CORPUSCULAR HGB CONC 31 g/dl (33.0-37.0); MEAN PLATELET VOLUME 10.8 fl (7.4-10.4); MONO # 0.7 (0.1-0.6); MONO % 13.2 % (1.7-9.3); PLATELET COUNT 181 K/mm3 (130-400); RED BLOOD COUNT 3.32 M/mm3 (4.10-5.30); REDCELL DISTRIBUTION WIDTH-CV 16.6 % (11.5-14.5)
[2020-02-22 07:56] LABS: HEMATOCRIT 27.9 % (37.0-47.0); HEMOGLOBIN 8.5 g/dl (12.5-16.0); MEAN CORPUSCULAR HEMOGLOBIN 26 pg (27.0-31.0)
[2020-02-22 07:58] LABS: CALCIUM 8.2 mg/dL (8.4-10.2); CREATININE, serum 2.3 (0.52-1.25); POTASSIUM 4.2 mmol/L (3.4-5.0)
[2020-02-22 08:00] VITALS: BP 146/85; PULSE 62; TEMP 98.1
--- NOTE | 2020-02-22 08:00 | NUR ---
Shift assessment complete at this time. Plan of care reviewed at bedside with patient. Additional time taken to address any other needs or concerns. Vitals stable at this time. Pt reports L chest pain at 6/10 severity. Will administer PRN morphine per orders, see eMAR. Pt endorses no other discomforts. Vitals stable at this time. Bed in low position, call light within reach, will continue to monitor.
[2020-02-22 08:14] LABS: TROPONIN-I 2.24 ng/mL (0.000-0.035)
[2020-02-22 11:59] VITALS: BP 140/78; PULSE 70; TEMP 98.4
--- NOTE | 2020-02-22 12:00 | NUR ---
Pt resting in bed. Reports improved chest pain after administration of PRN Dilaudid. Vitals stable at this time. Bed in low position, call light within reach, will continue to monitor.
--- NOTE | 2020-02-22 13:06 | NUR ---
Initial visit; Patient thanked Practical Ministries Professor for looking in on her and offering God's blessings.
--- NOTE | 2020-02-22 14:13 | NUR ---
sitting up in bed and had lunch, alert and oriented, skin warm and dry and color normal, heart rate strong and regular and lungs CTA, abdomen soft and non distended and bowel sounds present in 4 quads, peripheral pulses present in 4 extremities, denies needs at this time
--- NOTE | 2020-02-22 16:20 | NUR ---
resting in bed, c/o pain 03/07 and medicated with dilaudid 1mg slow IV, states this did a good job with relieving the pain the last time, Dacia Burrell APRN in to see patient,
[2020-02-22 16:32] VITALS: BP 137/72; PULSE 65; TEMP 98.1
--- NOTE | 2020-02-22 17:06 | NUR ---
states pain is better since having dilaudid, unsure of urinary output during this shift as patient as been going to bathroom independently and empties into 24 hour container
--- NOTE | 2020-02-22 18:48 | NUR ---
bedside shift report given to MIAH Joyce
[2020-02-22 22:00] VITALS: BP 135/70; PULSE 70
[2020-02-23 04:00] VITALS: BP 140/75; PULSE 68; TEMP 98.4
[2020-02-23 05:53] LABS: URINE 24 HOUR CREATININE 1.5 gm/24 hr (0.8-1.8)
[2020-02-23 07:16] VITALS: BP 145/90; PULSE 74; TEMP 98.7
--- NOTE | 2020-02-23 07:41 | NUR ---
Pt assessment complileted, charted, alert, oriented, roomair, independent. Meds provided as per SEP. I/V line flushed without complications. PRN pain meds given on pt request. Slept through out the night. Call light on reach. No further needs at this time. Handover given to day shgift nurse.
[2020-02-23 09:20] LABS: LYMPH # 0.4 (1.2-3.4); LYMPH % 9.4 % (20.0-51.0); MEAN CELL VOLUME 85 fl (80.0-100.0); MEAN CORPUSCULAR HGB CONC 30 g/dl (33.0-37.0); MEAN PLATELET VOLUME 10.8 fl (7.4-10.4); MONO % 0.9 % (1.7-9.3); PLATELET COUNT 205 K/mm3 (130-400); RED BLOOD COUNT 3.69 M/mm3 (4.10-5.30); REDCELL DISTRIBUTION WIDTH-CV 16.5 % (11.5-14.5)
[2020-02-23 09:21] LABS: HEMATOCRIT 31.2 % (37.0-47.0); HEMOGLOBIN 9.5 g/dl (12.5-16.0); MEAN CORPUSCULAR HEMOGLOBIN 26 pg (27.0-31.0)
[2020-02-23 09:29] LABS: CALCIUM 8.7 mg/dL (8.4-10.2); CREATININE, serum 2.47 (0.52-1.25); POTASSIUM 5.3 mmol/L (3.4-5.0)
--- NOTE | 2020-02-23 11:02 | NUR ---
Full Stack Net Developer attended clinical rounds with the team. The patient may be transferring to [facility] in [place]. Will continue to monitor.
[2020-02-23 11:49] VITALS: BP 145/90; PULSE 74; TEMP 98.7
[2020-02-23 12:24] VITALS: BP 144/88; PULSE 70; TEMP 98.7
== END 2020-02-23 12:30 | disposition critical access hospital (66) | DRG 546 ==
LOC: COL.ER 13:39 → SURG 15:35 → MEDICAL 18:39
PROVIDERS: Internal Medicine Adult Congenital Heart Disease; Internal Medicine Nephrology; Nurse Practitioner; ADMIT Student in an Organized Health Care Education/Training Program
DX: M32.12 Pericarditis in systemic lupus erythematosus (principal); N17.9 Acute kidney failure, unspecified; I50.22 Chronic systolic (congestive) heart failure; I42.9 Cardiomyopathy, unspecified; R79.89 Other specified abnormal findings of blood chemistry; E16.2 Hypoglycemia, unspecified; M32.14 Glomerular disease in systemic lupus erythematosus; E86.0 Dehydration; I11.0 Hypertensive heart disease with heart failure; I73.1 Thromboangiitis obliterans [Buerger's disease]; I73.00 Raynaud's syndrome without gangrene; Z87.891 Personal history of nicotine dependence
CPT/HCPCS: 99222-AI; 99233-AI; 99239; J1170; J1644; J2270; J2405; J7040; J7120; J7512; J7517

== ENCOUNTER 2020-05-25 07:47 | Emergency (ER) | payer MEDICARE ==
[~2020-05-25] VITALS: Ht 160 cm; Wt 90.9 kg
[~2020-05-25 07:47] MED LIST changes: +APRESOLINE 10MG10 MG PO; +ASPIRIN E.C. 8181 MG PO; +ISORDIL 10MG10 MG PO; +KEPPRA 500MG500 MG PO; +OMNICEF 300MG300 MG PO; +TOPROL XL 25MG25 MG PO; +ZOLOFT 100MG100 MG PO
[2020-05-25 07:53] VITALS: TEMP 98.7
[2020-05-25 08:33] LABS: BASO % 0.4 % (0.0-2.0); EOS # 0.1 (0.0-0.7); EOS % 1.6 % (0-4.0); GRAN # 5.3 (1.4-6.5); GRAN % 78.3 % (42.2-75.2); LYMPH # 0.8 (1.2-3.4); MEAN CELL VOLUME 85 fl (80.0-100.0); MEAN CORPUSCULAR HGB CONC 30 g/dl (33.0-37.0); MEAN PLATELET VOLUME 10.9 fl (7.4-10.4); MONO # 0.5 (0.1-0.6); MONO % 7.3 % (1.7-9.3); PLATELET COUNT 194 K/mm3 (130-400); RED BLOOD COUNT 3.45 M/mm3 (4.10-5.30); REDCELL DISTRIBUTION WIDTH-CV 16.8 % (11.5-14.5)
[2020-05-25 08:35] LABS: HEMATOCRIT 29.2 % (37.0-47.0); HEMOGLOBIN 8.7 g/dl (12.5-16.0); MEAN CORPUSCULAR HEMOGLOBIN 25 pg (27.0-31.0)
[2020-05-25 08:38] LABS: ALANINE AMINOTRANSFERASE 8 U/L (4-34); ALBUMIN 3.6 gm/dL (3.5-5.0); ALKALINE PHOSPHATASE 90 U/L (50-136); ANION GAP 8 mmol/L (7-16); AST,SGOT 25 U/L (15-37); BILIRUBIN,TOTAL 0.2 mg/dL (0.0-1.0); BLOOD UREA NITROGEN 33 mg/dL (7-17); CARBON DIOXIDE 18 mmol/L (22-30); CHLORIDE 114 mmol/L (98-107); CREATININE, serum 2.26 (0.52-1.25); GLUCOSE 88 mg/dL (74-106); LIPASE 69 U/L (23-300); MAGNESIUM 1.4 mg/dL (1.6-2.3); POTASSIUM 4.9 mmol/L (3.4-5.0); SODIUM 140 mmol/L (137-145); TOTAL PROTEIN 7.2 gm/dL (6.4-8.2)
[2020-05-25 08:45] LABS: C-REACTIVE PROTEIN < 0.5 mg/dL (0.0-0.9)
[2020-05-25 08:49] LABS: TROPONIN-I 0.551 ng/mL (0.000-0.035)
[2020-05-25 08:54] LABS: INR 0.9 (0.8-3.0); PROTHROMBIN TIME 10.5 SECONDS (9.7-12.8)
[2020-05-25 09:48] LABS: ERYTHROCYTE SEDIMENTATION RATE 63 mm/hr (0-20)
[2020-05-25] MEDS ORDERED: COLCRYS0.6 MG PO (13:45)
[2020-05-25] MEDS ORDERED: PERCOCET 325 MG1 TA2 PO (13:45)
[2020-05-25 14:12] VITALS: BP 133/88; PULSE 80
== END 2020-05-25 14:06 | disposition home or self-care (01) ==
LOC: COL.ER 07:47
PROVIDERS: Emergency Medicine
DX: I31.9 Disease of pericardium, unspecified (principal); I13.0 Hypertensive heart and chronic kidney disease with heart failure and stage 1 through stage 4 chronic kidney disease, or unspecified chronic kidney disease; G40.909 Epilepsy, unspecified, not intractable, without status epilepticus; N18.9 Chronic kidney disease, unspecified; Z86.73 Personal history of transient ischemic attack (TIA), and cerebral infarction without residual deficits; Z79.82 Long term (current) use of aspirin
CPT/HCPCS: J1170; J2550

== ENCOUNTER 2020-05-28 09:50 | Emergency (ER) | payer MEDICARE ==
[~2020-05-28] VITALS: Ht 160 cm; Wt 90.9 kg
[2020-05-28 10:32] LABS: BASO % 0.3 % (0.0-2.0); EOS # 0.1 (0.0-0.7); EOS % 1.6 % (0-4.0); GRAN # 4.7 (1.4-6.5); LYMPH # 0.9 (1.2-3.4); LYMPH % 15.1 % (20.0-51.0); MEAN CELL VOLUME 84 fl (80.0-100.0); MEAN CORPUSCULAR HGB CONC 30 g/dl (33.0-37.0); MONO # 0.4 (0.1-0.6); MONO % 6.7 % (1.7-9.3); PLATELET COUNT 158 K/mm3 (130-400); RED BLOOD COUNT 3.51 M/mm3 (4.10-5.30); REDCELL DISTRIBUTION WIDTH-CV 16.4 % (11.5-14.5)
[2020-05-28 10:42] LABS: HEMATOCRIT 29.4 % (37.0-47.0); HEMOGLOBIN 8.8 g/dl (12.5-16.0); MEAN CORPUSCULAR HEMOGLOBIN 25 pg (27.0-31.0)
[2020-05-28 10:47] LABS: ALBUMIN 3.5 gm/dL (3.5-5.0); BILIRUBIN,TOTAL 0.2 mg/dL (0.0-1.0); C-REACTIVE PROTEIN 3.4 mg/dL (0.0-0.9); CALCIUM 8.4 mg/dL (8.4-10.2); CREATININE, serum 2.46 (0.52-1.25); POTASSIUM 4.5 mmol/L (3.4-5.0)
[2020-05-28 10:57] LABS: TROPONIN-I 0.413 ng/mL (0.000-0.035)
[2020-05-28] MEDS ORDERED: PERCOCET 325 MG1 TA3 PO (11:04)
[2020-05-28] MEDS ORDERED: MEDROL 4MG DOSPA4 MG PO (11:08)
[2020-05-28 11:20] LABS: ERYTHROCYTE SEDIMENTATION RATE 88 mm/hr (0-20)
[2020-05-28 12:57] VITALS: BP 133/86; PULSE 78; TEMP 98.2
== END 2020-05-28 12:57 | disposition home or self-care (01) ==
LOC: COL.ER 09:50
PROVIDERS: Emergency Medicine
DX: I31.9 Disease of pericardium, unspecified (principal); M32.9 Systemic lupus erythematosus, unspecified; N18.9 Chronic kidney disease, unspecified; D64.9 Anemia, unspecified; Z86.73 Personal history of transient ischemic attack (TIA), and cerebral infarction without residual deficits; Z79.82 Long term (current) use of aspirin
CPT/HCPCS: J1170; J2405; J7030

== ENCOUNTER 2020-06-01 12:42 | Emergency (ER) | payer MEDICARE ==
[~2020-06-01] VITALS: Ht 160 cm; Wt 90.9 kg
[~2020-06-01 12:42] MED LIST changes: +MEDROL 4MG DOSPA4 MG PO; +PERCOCET 325 MG1 TA3 PO
[2020-06-01 12:56] VITALS: TEMP 97.8
[2020-06-01 14:55] LABS: BASO % 0.5 % (0.0-2.0); EOS # 0.1 (0.0-0.7); EOS % 1.3 % (0-4.0); GRAN # 4.6 (1.4-6.5); GRAN % 72.9 % (42.2-75.2); LYMPH # 1.1 (1.2-3.4); LYMPH % 17.6 % (20.0-51.0); MEAN CELL VOLUME 84 fl (80.0-100.0); MEAN CORPUSCULAR HGB CONC 30 g/dl (33.0-37.0); MONO # 0.5 (0.1-0.6); MONO % 7.4 % (1.7-9.3); PLATELET COUNT 258 K/mm3 (130-400); RED BLOOD COUNT 3.95 M/mm3 (4.10-5.30); REDCELL DISTRIBUTION WIDTH-CV 16.5 % (11.5-14.5)
[2020-06-01 14:58] LABS: HEMOGLOBIN 9.8 g/dl (12.5-16.0); MEAN CORPUSCULAR HEMOGLOBIN 25 pg (27.0-31.0)
[2020-06-01 15:03] LABS: ALANINE AMINOTRANSFERASE 7 U/L (4-34); ALKALINE PHOSPHATASE 95 U/L (50-136); ANION GAP 10 mmol/L (7-16); AST,SGOT 19 U/L (15-37); BILIRUBIN,TOTAL 0.3 mg/dL (0.0-1.0); BLOOD UREA NITROGEN 31 mg/dL (7-17); CALCIUM 8.9 mg/dL (8.4-10.2); CARBON DIOXIDE 19 mmol/L (22-30); CHLORIDE 112 mmol/L (98-107); CREATININE, serum 2.25 (0.52-1.25); GLUCOSE 92 mg/dL (74-106); LIPASE 44 U/L (23-300); SODIUM 140 mmol/L (137-145); TOTAL PROTEIN 7.8 gm/dL (6.4-8.2)
[2020-06-01 15:07] LABS: C-REACTIVE PROTEIN < 0.5 mg/dL (0.0-0.9)
[2020-06-01 15:15] LABS: TROPONIN-I 0.132 ng/mL (0.000-0.035)
[2020-06-01 16:13] VITALS: BP 144/95; PULSE 92
[2020-06-02] MEDS ORDERED: OMNICEF 300MG300 MG PO (15:12)
== END 2020-06-01 16:30 | disposition home or self-care (01) ==
LOC: COL.ER 12:42
PROVIDERS: Emergency Medicine
DX: I09.2 Chronic rheumatic pericarditis (principal); I10 Essential (primary) hypertension; G40.909 Epilepsy, unspecified, not intractable, without status epilepticus; Z86.73 Personal history of transient ischemic attack (TIA), and cerebral infarction without residual deficits; Z79.82 Long term (current) use of aspirin
CPT/HCPCS: J1100; J1170; J1200; J2405

== ENCOUNTER 2020-06-02 11:52 | Emergency (ER) | payer MEDICARE ==
[~2020-06-02] VITALS: Ht 160 cm; Wt 90.9 kg
[2020-06-02 12:09] VITALS: TEMP 99
[2020-06-02 13:33] LABS: COLLECTION METHOD CLEAN CATCH
[2020-06-02 13:38] LABS: BASO % 0.1 % (0.0-2.0); EOS % 0.2 % (0-4.0); GRAN # 6.2 (1.4-6.5); HEMOGLOBIN 10.2 g/dl (12.5-16.0); LYMPH # 1.6 (1.2-3.4); MEAN CELL VOLUME 84 fl (80.0-100.0); MEAN CORPUSCULAR HEMOGLOBIN 25 pg (27.0-31.0); MEAN CORPUSCULAR HGB CONC 30 g/dl (33.0-37.0); MEAN PLATELET VOLUME 9.5 fl (7.4-10.4); MONO # 0.9 (0.1-0.6); MONO % 10.5 % (1.7-9.3); PLATELET COUNT 257 K/mm3 (130-400); RED BLOOD COUNT 4.07 M/mm3 (4.10-5.30); REDCELL DISTRIBUTION WIDTH-CV 16.6 % (11.5-14.5)
[2020-06-02 13:50] LABS: MUCOUS Present /lpf; PH 5 (5-8); URINE APPEARANCE Cloudy; URINE BACTERIA Rare /hpf; URINE BILIRUBIN Negative (NEGATIVE); URINE BLOOD Negative (NEGATIVE); URINE COLOR Yellow; URINE GLUCOSE 1+ (NEGATIVE); URINE KETONE Negative (NEGATIVE); URINE LEUKOCYTE ESTERASE 3+ (NEGATIVE); URINE NITRATE Negative (NEGATIVE); URINE PROTEIN(semi-quant) 3+ (NEGATIVE); URINE RBC 20-50 /hpf; URINE UROBILINOGEN Negative (NEGATIVE)
[2020-06-02 13:51] LABS: ALANINE AMINOTRANSFERASE 12 U/L (4-34); ALBUMIN 4.1 gm/dL (3.5-5.0); ALKALINE PHOSPHATASE 97 U/L (50-136); ANION GAP 10 mmol/L (7-16); AST,SGOT 20 U/L (15-37); BILIRUBIN,TOTAL 0.2 mg/dL (0.0-1.0); BLOOD UREA NITROGEN 34 mg/dL (7-17); CARBON DIOXIDE 19 mmol/L (22-30); CHLORIDE 111 mmol/L (98-107); CREATININE, serum 2.41 (0.52-1.25); GLUCOSE 93 mg/dL (74-106); LIPASE 30 U/L (23-300); POTASSIUM 4.1 mmol/L (3.4-5.0); SODIUM 140 mmol/L (137-145)
[2020-06-02 13:55] LABS: C-REACTIVE PROTEIN < 0.5 mg/dL (0.0-0.9)
[2020-06-02 14:01] LABS: TROPONIN-I 0.085 ng/mL (0.000-0.035)
[2020-06-02] MEDS ORDERED: OMNICEF 300MG300 MG PO (15:12)
[2020-06-02 15:39] VITALS: BP 131/79; PULSE 69
== END 2020-06-02 15:32 | disposition home or self-care (01) ==
LOC: COL.ER 11:52
PROVIDERS: Family Medicine
DX: R10.9 Unspecified abdominal pain (principal); N39.0 Urinary tract infection, site not specified; R11.2 Nausea with vomiting, unspecified; Z79.82 Long term (current) use of aspirin
CPT/HCPCS: J0696; J1170; J2405; J2550; J3010; J7120

== ENCOUNTER 2020-06-06 09:11 | Emergency (ER) | payer MEDICARE ==
[~2020-06-06] VITALS: Ht 160 cm; Wt 9.1 kg
[2020-06-06 09:22] VITALS: TEMP 98.4
[2020-06-06 13:24] LABS: BASO % 0.3 % (0.0-2.0); EOS # 0.2 (0.0-0.7); EOS % 3.2 % (0-4.0); GRAN # 4.6 (1.4-6.5); GRAN % 70.9 % (42.2-75.2); LYMPH # 0.9 (1.2-3.4); LYMPH % 13.7 % (20.0-51.0); MEAN CELL VOLUME 85 fl (80.0-100.0); MEAN CORPUSCULAR HGB CONC 30 g/dl (33.0-37.0); MEAN PLATELET VOLUME 12.2 fl (7.4-10.4); MONO # 0.7 (0.1-0.6); MONO % 10.8 % (1.7-9.3); PLATELET COUNT 257 K/mm3 (130-400); RED BLOOD COUNT 3.42 M/mm3 (4.10-5.30); REDCELL DISTRIBUTION WIDTH-CV 16.8 % (11.5-14.5)
[2020-06-06 13:26] LABS: HEMATOCRIT 28.9 % (37.0-47.0); HEMOGLOBIN 8.6 g/dl (12.5-16.0); MEAN CORPUSCULAR HEMOGLOBIN 25 pg (27.0-31.0)
[2020-06-06 13:44] LABS: ALANINE AMINOTRANSFERASE 6 U/L (4-34); ALBUMIN 3.4 gm/dL (3.5-5.0); ALKALINE PHOSPHATASE 81 U/L (50-136); ANION GAP 6 mmol/L (7-16); AST,SGOT 19 U/L (15-37); BILIRUBIN,TOTAL 0.2 mg/dL (0.0-1.0); BLOOD UREA NITROGEN 31 mg/dL (7-17); CALCIUM 8.4 mg/dL (8.4-10.2); CARBON DIOXIDE 20 mmol/L (22-30); CHLORIDE 112 mmol/L (98-107); CREATININE, serum 1.89 (0.52-1.25); GLUCOSE 80 mg/dL (74-106); POTASSIUM 4.8 mmol/L (3.4-5.0); SODIUM 138 mmol/L (137-145); TOTAL PROTEIN 6.8 gm/dL (6.4-8.2)
[2020-06-06 13:46] LABS: C-REACTIVE PROTEIN < 0.5 mg/dL (0.0-0.9)
[2020-06-06 13:50] LABS: ERYTHROCYTE SEDIMENTATION RATE 61 mm/hr (0-20)
[2020-06-06 14:01] LABS: TROPONIN-I 0.092 ng/mL (0.000-0.035)
[2020-06-06] MEDS ORDERED: PERCOCET 325 MG1 TA2 PO (15:34)
[2020-06-06 15:56] VITALS: BP 130/90; PULSE 73
== END 2020-06-06 15:58 | disposition home or self-care (01) ==
LOC: COL.ER 09:11
PROVIDERS: Emergency Medicine
DX: R07.9 Chest pain, unspecified (principal); G89.29 Other chronic pain; Z79.82 Long term (current) use of aspirin; Z32.02 Encounter for pregnancy test, result negative
CPT/HCPCS: J1170; J2405

== ENCOUNTER 2020-06-10 08:44 | Emergency (ER) | payer MEDICARE ==
[~2020-06-10] VITALS: Ht 160 cm; Wt 90.9 kg
[2020-06-10 08:50] VITALS: TEMP 98.3
[2020-06-10 09:47] LABS: BASO % 0.5 % (0.0-2.0); EOS # 0.1 (0.0-0.7); EOS % 2.5 % (0-4.0); GRAN # 2.2 (1.4-6.5); GRAN % 55.1 % (42.2-75.2); LYMPH % 24.3 % (20.0-51.0); MEAN CELL VOLUME 83 fl (80.0-100.0); MEAN CORPUSCULAR HGB CONC 30 g/dl (33.0-37.0); MEAN PLATELET VOLUME 10.2 fl (7.4-10.4); MONO # 0.7 (0.1-0.6); MONO % 16.9 % (1.7-9.3); PLATELET COUNT 175 K/mm3 (130-400); RED BLOOD COUNT 3.38 M/mm3 (4.10-5.30); REDCELL DISTRIBUTION WIDTH-CV 16.3 % (11.5-14.5)
[2020-06-10 09:55] LABS: HEMATOCRIT 27.9 % (37.0-47.0); HEMOGLOBIN 8.4 g/dl (12.5-16.0); MEAN CORPUSCULAR HEMOGLOBIN 25 pg (27.0-31.0)
[2020-06-10 09:56] LABS: ALBUMIN 3.5 gm/dL (3.5-5.0); BILIRUBIN,TOTAL 0.2 mg/dL (0.0-1.0); C-REACTIVE PROTEIN 0.8 mg/dL (0.0-0.9); CREATININE, serum 2.07 (0.52-1.25); POTASSIUM 4.4 mmol/L (3.4-5.0); TOTAL PROTEIN 6.8 gm/dL (6.4-8.2)
[2020-06-10 10:10] LABS: TROPONIN-I 0.043 ng/mL (0.000-0.035)
[2020-06-10 10:26] VITALS: BP 128/83; PULSE 99
== END 2020-06-10 10:29 | disposition home or self-care (01) ==
LOC: COL.ER 08:44
PROVIDERS: Physician Assistant
DX: G89.29 Other chronic pain (principal); R07.9 Chest pain, unspecified; I10 Essential (primary) hypertension; E78.5 Hyperlipidemia, unspecified; I31.9 Disease of pericardium, unspecified; Z87.891 Personal history of nicotine dependence; Z79.82 Long term (current) use of aspirin

== ENCOUNTER 2020-06-12 18:44 | Emergency (ER) | payer MEDICARE ==
[~2020-06-12] VITALS: Ht 160 cm; Wt 90.9 kg
[2020-06-12 20:06] LABS: BASO % 0.2 % (0.0-2.0); EOS # 0.1 (0.0-0.7); EOS % 2.2 % (0-4.0); GRAN # 3.3 (1.4-6.5); GRAN % 65.1 % (42.2-75.2); HEMATOCRIT 27.1 % (37.0-47.0); HEMOGLOBIN 8.2 g/dl (12.5-16.0); LYMPH # 1.1 (1.2-3.4); LYMPH % 20.7 % (20.0-51.0); MEAN CELL VOLUME 83 fl (80.0-100.0); MEAN CORPUSCULAR HEMOGLOBIN 25 pg (27.0-31.0); MEAN CORPUSCULAR HGB CONC 30 g/dl (33.0-37.0); MONO # 0.6 (0.1-0.6); MONO % 11.4 % (1.7-9.3); PLATELET COUNT 141 K/mm3 (130-400); RED BLOOD COUNT 3.27 M/mm3 (4.10-5.30); REDCELL DISTRIBUTION WIDTH-CV 16.5 % (11.5-14.5)
[2020-06-12 20:15] LABS: C-REACTIVE PROTEIN 1.9 mg/dL (0.0-0.9)
[2020-06-12 20:29] LABS: TROPONIN-I 0.056 ng/mL (0.000-0.035)
[2020-06-12 20:53] LABS: CALCIUM 7.7 mg/dL (8.4-10.2); CREATININE, serum 2.17 (0.52-1.25); POTASSIUM 4.7 mmol/L (3.4-5.0)
[2020-06-12] MEDS ORDERED: PERCOCET 325 MG1 TA2 PO (21:55)
[2020-06-12] MEDS ORDERED: NEURONTIN300 MG/CAP PO (21:55)
[2020-06-12 22:00] VITALS: TEMP 98.4
[2020-06-12 22:58] VITALS: BP 161/103; PULSE 81
== END 2020-06-12 22:58 | disposition home or self-care (01) ==
LOC: COL.ER 18:44
PROVIDERS: Emergency Medicine
DX: I31.9 Disease of pericardium, unspecified (principal); D64.9 Anemia, unspecified; I10 Essential (primary) hypertension; Z79.82 Long term (current) use of aspirin
CPT/HCPCS: J1170; J2405; J7040

== ENCOUNTER → 2020-06-18 | Emergency (ER) | payer MEDICARE ==
[~2020-06-18] VITALS: Ht 160 cm; Wt 90.9 kg
[2020-06-18 13:27] VITALS: BP 159/94; PULSE 63; TEMP 98.5
[2020-06-18 14:29] LABS: BASO % 0.7 % (0.0-2.0); EOS # 0.1 (0.0-0.7); EOS % 2.3 % (0-4.0); GRAN # 2.9 (1.4-6.5); GRAN % 66.9 % (42.2-75.2); HEMATOCRIT 29.6 % (37.0-47.0); HEMOGLOBIN 8.9 g/dl (12.5-16.0); LYMPH # 0.8 (1.2-3.4); LYMPH % 18.7 % (20.0-51.0); MEAN CELL VOLUME 84 fl (80.0-100.0); MEAN CORPUSCULAR HEMOGLOBIN 25 pg (27.0-31.0); MEAN CORPUSCULAR HGB CONC 30 g/dl (33.0-37.0); MONO # 0.5 (0.1-0.6); MONO % 10.7 % (1.7-9.3); PLATELET COUNT 174 K/mm3 (130-400); RED BLOOD COUNT 3.51 M/mm3 (4.10-5.30); REDCELL DISTRIBUTION WIDTH-CV 16.8 % (11.5-14.5)
[2020-06-18 14:45] LABS: ALBUMIN 3.5 gm/dL (3.5-5.0); BILIRUBIN,TOTAL 0.2 mg/dL (0.0-1.0); CALCIUM 8.2 mg/dL (8.4-10.2); CREATININE, serum 2.09 (0.52-1.25); POTASSIUM 4.7 mmol/L (3.4-5.0); TOTAL PROTEIN 6.8 gm/dL (6.4-8.2)
[2020-06-18 14:59] LABS: TROPONIN-I 0.827 ng/mL (0.000-0.035)
== END ==
LOC: COL.ER 12:47
PROVIDERS: Emergency Medicine
DX: R77.8 Other specified abnormalities of plasma proteins (principal); Z89.022 Acquired absence of left finger(s); Z87.891 Personal history of nicotine dependence; Z53.29 Procedure and treatment not carried out because of patient's decision for other reasons; Z79.82 Long term (current) use of aspirin; Z86.73 Personal history of transient ischemic attack (TIA), and cerebral infarction without residual deficits

== ENCOUNTER 2020-09-02 08:28 | Emergency (ER) | payer MEDICARE ==
[~2020-09-02] VITALS: Ht 160 cm; Wt 95.5 kg
[~2020-09-02 08:28] MED LIST changes: +ATARAX50 MG PO; +MITIGARE0.6 MG PO
[2020-09-02 08:36] VITALS: TEMP 98.6
[2020-09-02 09:22] LABS: BASO % 0.3 % (0.0-2.0); EOS # 0.1 (0.0-0.7); EOS % 1.4 % (0-4.0); GRAN # 2.2 (1.4-6.5); GRAN % 64.6 % (42.2-75.2); LYMPH # 0.7 (1.2-3.4); LYMPH % 20.9 % (20.0-51.0); MEAN CELL VOLUME 84 fl (80.0-100.0); MEAN CORPUSCULAR HGB CONC 30 g/dl (33.0-37.0); MEAN PLATELET VOLUME 10.5 fl (7.4-10.4); MONO # 0.4 (0.1-0.6); MONO % 11.9 % (1.7-9.3); PLATELET COUNT 208 K/mm3 (130-400); RED BLOOD COUNT 3.81 M/mm3 (4.10-5.30); REDCELL DISTRIBUTION WIDTH-CV 15.9 % (11.5-14.5)
[2020-09-02 09:23] LABS: HEMATOCRIT 31.9 % (37.0-47.0); HEMOGLOBIN 9.6 g/dl (12.5-16.0); MEAN CORPUSCULAR HEMOGLOBIN 25 pg (27.0-31.0)
[2020-09-02 09:27] LABS: PROTHROMBIN TIME 10.8 SECONDS (9.7-12.8)
[2020-09-02 09:29] LABS: PARTIAL THROMBOPLASTIN TIME 34.3 SECONDS (26.0-37.0)
[2020-09-02 09:34] LABS: ALBUMIN 3.4 gm/dL (3.5-5.0); BILIRUBIN,TOTAL 0.2 mg/dL (0.0-1.0); C-REACTIVE PROTEIN 1.1 mg/dL (0.0-0.9); CALCIUM 8.4 mg/dL (8.4-10.2); CREATININE, serum 2.21 (0.52-1.25); POTASSIUM 4.9 mmol/L (3.4-5.0); TOTAL PROTEIN 6.9 gm/dL (6.4-8.2)
[2020-09-02 09:47] LABS: TROPONIN-I 0.061 ng/mL (0.000-0.035)
[2020-09-02 10:39] LABS: COLLECTION METHOD CLEAN CATCH
[2020-09-02] MEDS ORDERED: LIPITOR20 MG PO (10:58)
[2020-09-02 11:46] LABS: PH 6 (5-8); SQUAMOUS EPITHELIAL 0-2 /hpf; URINE APPEARANCE Cloudy; URINE BACTERIA None Seen /hpf; URINE BILIRUBIN Negative (NEGATIVE); URINE BLOOD 3+ (NEGATIVE); URINE COLOR Red; URINE GLUCOSE 1+ (NEGATIVE); URINE KETONE Negative (NEGATIVE); URINE LEUKOCYTE ESTERASE Negative (NEGATIVE); URINE NITRATE Negative (NEGATIVE); URINE PROTEIN(semi-quant) 3+ (NEGATIVE); URINE RBC >50 /hpf; URINE UROBILINOGEN Negative (NEGATIVE)
[2020-09-02] MEDS ORDERED: PREDNISONE20 MG PO (13:24)
[2020-09-02 14:00] VITALS: BP 164/97; PULSE 70
== END 2020-09-02 14:00 | disposition home or self-care (01) ==
LOC: COL.ER 08:28
PROVIDERS: Family Medicine
DX: M32.9 Systemic lupus erythematosus, unspecified (principal); F41.9 Anxiety disorder, unspecified; F32.9 Major depressive disorder, single episode, unspecified; G40.909 Epilepsy, unspecified, not intractable, without status epilepticus; I13.0 Hypertensive heart and chronic kidney disease with heart failure and stage 1 through stage 4 chronic kidney disease, or unspecified chronic kidney disease; I50.9 Heart failure, unspecified; N18.9 Chronic kidney disease, unspecified; Z86.73 Personal history of transient ischemic attack (TIA), and cerebral infarction without residual deficits
CPT/HCPCS: J1100; J2270; J2405; J3010

== ENCOUNTER 2020-09-08 19:25 | Emergency (ER) | payer MEDICARE ==
[~2020-09-08] VITALS: Ht 160 cm; Wt 95.5 kg
[~2020-09-08 19:25] MED LIST changes: +LIPITOR20 MG PO
[2020-09-08 19:35] VITALS: TEMP 98.7
[2020-09-08 20:05] LABS: BASO % 0.3 % (0.0-2.0); EOS # 0.1 (0.0-0.7); EOS % 1.3 % (0-4.0); GRAN # 2.2 (1.4-6.5); GRAN % 58.8 % (42.2-75.2); LYMPH % 26.7 % (20.0-51.0); MEAN CELL VOLUME 84 fl (80.0-100.0); MEAN CORPUSCULAR HGB CONC 30 g/dl (33.0-37.0); MEAN PLATELET VOLUME 9.9 fl (7.4-10.4); MONO # 0.5 (0.1-0.6); MONO % 12.6 % (1.7-9.3); PLATELET COUNT 160 K/mm3 (130-400); RED BLOOD COUNT 3.75 M/mm3 (4.10-5.30); REDCELL DISTRIBUTION WIDTH-CV 15.9 % (11.5-14.5)
[2020-09-08 20:06] LABS: HEMATOCRIT 31.6 % (37.0-47.0); HEMOGLOBIN 9.6 g/dl (12.5-16.0); MEAN CORPUSCULAR HEMOGLOBIN 26 pg (27.0-31.0)
[2020-09-08 20:24] LABS: ALBUMIN 3.3 gm/dL (3.5-5.0); BILIRUBIN,TOTAL 0.3 mg/dL (0.0-1.0); C-REACTIVE PROTEIN 2.7 mg/dL (0.0-0.9); CALCIUM 8.4 mg/dL (8.4-10.2); CREATININE, serum 2.18 (0.52-1.25); POTASSIUM 4.6 mmol/L (3.4-5.0); TOTAL PROTEIN 6.8 gm/dL (6.4-8.2)
[2020-09-08 20:34] LABS: TROPONIN-I 0.079 ng/mL (0.000-0.035)
[2020-09-08 20:48] LABS: ERYTHROCYTE SEDIMENTATION RATE 67 mm/hr (0-20)
[2020-09-08 20:49] LABS: PROTHROMBIN TIME 11.7 SECONDS (9.7-12.8)
[2020-09-08] MEDS ORDERED: PREDNISONE20 MG PO (20:49)
[2020-09-08 21:03] VITALS: BP 148/91; PULSE 83
== END 2020-09-08 21:22 | disposition home or self-care (01) ==
LOC: COL.ER 19:25
PROVIDERS: Emergency Medicine
DX: M32.9 Systemic lupus erythematosus, unspecified (principal); F32.9 Major depressive disorder, single episode, unspecified; F41.9 Anxiety disorder, unspecified; I13.0 Hypertensive heart and chronic kidney disease with heart failure and stage 1 through stage 4 chronic kidney disease, or unspecified chronic kidney disease; N18.9 Chronic kidney disease, unspecified; I50.9 Heart failure, unspecified; I25.10 Atherosclerotic heart disease of native coronary artery without angina pectoris; Z87.891 Personal history of nicotine dependence
CPT/HCPCS: J2270; J2405; J7512

== ENCOUNTER 2020-09-13 07:03 | Emergency (ER) | payer MEDICARE ==
[~2020-09-13] VITALS: Ht 160 cm; Wt 99.1 kg
[2020-09-13 07:07] VITALS: TEMP 98.5
[2020-09-13 08:27] LABS: BASO % 0.1 % (0.0-2.0); EOS % 0.1 % (0-4.0); GRAN # 6.1 (1.4-6.5); GRAN % 80.5 % (42.2-75.2); LYMPH # 1.2 (1.2-3.4); LYMPH % 15.3 % (20.0-51.0); MEAN CELL VOLUME 85 fl (80.0-100.0); MEAN CORPUSCULAR HGB CONC 30 g/dl (33.0-37.0); MONO # 0.2 (0.1-0.6); PLATELET COUNT 191 K/mm3 (130-400); RED BLOOD COUNT 3.87 M/mm3 (4.10-5.30); REDCELL DISTRIBUTION WIDTH-CV 16.3 % (11.5-14.5)
[2020-09-13 08:28] LABS: HEMATOCRIT 32.9 % (37.0-47.0); HEMOGLOBIN 9.8 g/dl (12.5-16.0); MEAN CORPUSCULAR HEMOGLOBIN 25 pg (27.0-31.0)
[2020-09-13 08:33] LABS: ALBUMIN 3.6 gm/dL (3.5-5.0); BILIRUBIN,TOTAL 0.2 mg/dL (0.0-1.0); CALCIUM 8.8 mg/dL (8.4-10.2); CREATININE, serum 2.52 (0.52-1.25); POTASSIUM 4.8 mmol/L (3.4-5.0); TOTAL PROTEIN 7.3 gm/dL (6.4-8.2)
[2020-09-13 08:47] LABS: TROPONIN-I 0.111 ng/mL (0.000-0.035)
[2020-09-13] MEDS ORDERED: PREDNISONE10 MG PO (11:58)
[2020-09-13 12:10] VITALS: BP 153/97; PULSE 71
== END 2020-09-13 12:10 | disposition home or self-care (01) ==
LOC: COL.ER 07:03
PROVIDERS: Emergency Medicine
DX: G89.29 Other chronic pain (principal); R07.9 Chest pain, unspecified; M32.9 Systemic lupus erythematosus, unspecified; R06.02 Shortness of breath; Z79.52 Long term (current) use of systemic steroids
CPT/HCPCS: J2270; J2405

== ENCOUNTER 2020-09-18 03:53 | Emergency (ER) | payer MEDICARE ==
[~2020-09-18] VITALS: Ht 157.5 cm; Wt 90.9 kg
[2020-09-18 03:55] VITALS: TEMP 98.4
[2020-09-18 04:31] LABS: MEAN CELL VOLUME 86 fl (80.0-100.0); MEAN CORPUSCULAR HGB CONC 29 g/dl (33.0-37.0); MEAN PLATELET VOLUME 10.3 fl (7.4-10.4); PLATELET COUNT 188 K/mm3 (130-400); RED BLOOD COUNT 3.61 M/mm3 (4.10-5.30); REDCELL DISTRIBUTION WIDTH-CV 16.7 % (11.5-14.5)
[2020-09-18 04:42] LABS: CALCIUM 7.2 mg/dL (8.4-10.2); CREATININE, serum 2.3 (0.52-1.25); POTASSIUM 4.2 mmol/L (3.4-5.0)
[2020-09-18 04:43] LABS: HEMATOCRIT 30.9 % (37.0-47.0); HEMOGLOBIN 9.1 g/dl (12.5-16.0); MEAN CORPUSCULAR HEMOGLOBIN 25 pg (27.0-31.0)
[2020-09-18 04:53] LABS: BAND 1 % (0-10); EOSINOPHIL 3 % (0-4); HYPOCHROMIA 1+; LYMPHOCYTE 23 % (20.0-51.0); METAMYELOCYTE 2 % (0-0); NEUTROPHILS 65 % (42.0-75.2)
[2020-09-18 04:54] LABS: ANISOCYTOSIS 2+; MICROCYTOSIS 1+; OVALOCYTES 1+; PLATELET ESTIMATE NORMAL (NORMAL); POIKILOCYTOSIS 2+
[2020-09-18 04:56] LABS: TROPONIN-I 0.254 ng/mL (0.000-0.035)
[2020-09-18] MEDS ORDERED: NORCO 325 MG-51 TAB PO (06:51)
[2020-09-18] MEDS ORDERED: ZOFRAN ODT4 MG PO (06:51)
[2020-09-18 08:21] VITALS: BP 145/95; PULSE 72
== END 2020-09-18 08:21 | disposition home or self-care (01) ==
LOC: COL.ER 03:53
PROVIDERS: Emergency Medicine
DX: F41.0 Panic disorder [episodic paroxysmal anxiety] (principal); G89.29 Other chronic pain; R07.89 Other chest pain; M32.9 Systemic lupus erythematosus, unspecified; I12.9 Hypertensive chronic kidney disease with stage 1 through stage 4 chronic kidney disease, or unspecified chronic kidney disease; N18.9 Chronic kidney disease, unspecified; Z86.73 Personal history of transient ischemic attack (TIA), and cerebral infarction without residual deficits; Z79.52 Long term (current) use of systemic steroids; Z79.82 Long term (current) use of aspirin
CPT/HCPCS: J2060; J2270; J2405

== ENCOUNTER 2020-09-21 08:41 | Emergency (ER) | payer MEDICARE ==
[~2020-09-21] VITALS: Ht 157.5 cm; Wt 100.0 kg
[~2020-09-21 08:41] MED LIST changes: +ZOFRAN ODT4 MG PO
[2020-09-21 08:48] VITALS: TEMP 98
[2020-09-21 14:56] VITALS: BP 162/92; PULSE 84
[2020-09-22 13:15] LABS: RED BLOOD COUNT 3.55 M/mm3 (4.10-5.30)
[2020-09-22 13:16] LABS: BASO % 0.2 % (0.0-2.0); EOS % 0.8 % (0-4.0); GRAN % 79.8 % (42.2-75.2); HEMATOCRIT 30.7 % (37.0-47.0); HEMOGLOBIN 9.3 g/dl (12.5-16.0); LYMPH % 9.2 % (20.0-51.0); MEAN CELL VOLUME 87 fl (80.0-100.0); MEAN CORPUSCULAR HEMOGLOBIN 26 pg (27.0-31.0); MEAN CORPUSCULAR HGB CONC 30 g/dl (33.0-37.0); MONO % 8.8 % (1.7-9.3); PLATELET COUNT 164 K/mm3 (130-400); REDCELL DISTRIBUTION WIDTH-CV 17.1 % (11.5-14.5)
[2020-09-22 13:17] LABS: EOS # 0.1 (0.0-0.7); LYMPH # 0.9 (1.2-3.4); MONO # 0.9 (0.1-0.6)
[2020-09-22 13:18] LABS: ALBUMIN 3.2 gm/dL (3.5-5.0); BILIRUBIN,TOTAL 0.4 mg/dL (0.0-1.0); CREATININE, serum 2.42 (0.52-1.25); POTASSIUM 4.9 mmol/L (3.4-5.0); TOTAL PROTEIN 6.4 gm/dL (6.4-8.2)
== END 2020-09-21 14:46 | disposition home or self-care (01) ==
LOC: COL.ER 08:41
PROVIDERS: Emergency Medicine
DX: R07.89 Other chest pain (principal); I10 Essential (primary) hypertension; E78.5 Hyperlipidemia, unspecified; Z79.52 Long term (current) use of systemic steroids; M32.9 Systemic lupus erythematosus, unspecified
CPT/HCPCS: J2270; J2405; Q9967

== ENCOUNTER 2020-09-25 04:31 | Observation (INO) | payer MEDICARE ==
[~2020-09-25] VITALS: Ht 160 cm; Wt 90.1 kg
[2020-09-25 05:14] LABS: BASO % 0.4 % (0.0-2.0); EOS # 0.1 (0.0-0.7); EOS % 2.6 % (0-4.0); GRAN # 3.5 (1.4-6.5); GRAN % 68.7 % (42.2-75.2); HEMOGLOBIN 10.5 g/dl (12.5-16.0); LYMPH # 0.9 (1.2-3.4); LYMPH % 17.2 % (20.0-51.0); MEAN CELL VOLUME 85 fl (80.0-100.0); MEAN CORPUSCULAR HEMOGLOBIN 26 pg (27.0-31.0); MEAN CORPUSCULAR HGB CONC 30 g/dl (33.0-37.0); MONO # 0.5 (0.1-0.6); MONO % 10.5 % (1.7-9.3); PLATELET COUNT 169 K/mm3 (130-400); RED BLOOD COUNT 4.08 M/mm3 (4.10-5.30); REDCELL DISTRIBUTION WIDTH-CV 16.5 % (11.5-14.5)
[2020-09-25 05:16] LABS: HEMATOCRIT 34.7 % (37.0-47.0)
[2020-09-25 05:27] LABS: ALBUMIN 3.5 gm/dL (3.5-5.0); BILIRUBIN,TOTAL 0.4 mg/dL (0.0-1.0); CALCIUM 8.4 mg/dL (8.4-10.2); CREATININE, serum 2.21 (0.52-1.25); POTASSIUM 5.1 mmol/L (3.4-5.0); TOTAL PROTEIN 6.9 gm/dL (6.4-8.2)
[2020-09-25 05:40] LABS: TROPONIN-I 0.125 ng/mL (0.000-0.035)
[2020-09-25 05:43] LABS: ERYTHROCYTE SEDIMENTATION RATE 50 mm/hr (0-20)
[2020-09-25] MEDS ORDERED: NORVASC 5MG5 MG/TAB PO (05:45)
[2020-09-25] MEDS ORDERED: LIPITOR 40MG TA40 MG PO (07:32)
[2020-09-25] MEDS ORDERED: NORVASC 10MG10 MG PO (07:32)
[2020-09-25 07:40] LABS: CHOLESTEROL RISK RATIO 3.4; MAGNESIUM 1.5 mg/dL (1.6-2.3)
--- NOTE | 2020-09-25 08:15 | NUR ---
Patient to room 317 by wheelchair from the ER. A&Ox4. VSS. IV CDI. Nurse oriented patient to location, room and call light. Patient complaints of pain, nurse will notify the doctor. No furthr needs expressed from the patient. Call light within reach
[2020-09-25 08:23] VITALS: BP 150/91; PULSE 84; TEMP 98.5
[2020-09-25] MEDS ORDERED: ATARAX50 MG PO (09:26)
--- NOTE | 2020-09-25 12:00 | NUR ---
Patient had complaints of pain since being admitted to the floor from the ER. Nurse and Dr Daly spoke with the patient and informed her that she was only getting PO pain medication. Patient was not happy. She continued to request pain medication several times after already being told only Po pain medication will be given. Patient called [facility] [employer] and wanted to speak with patient advocacy. Dr Daly notified and again spoke with the patient. Patient started to yell at Dr. Daly and followed him to the nursing station where she continue to yell and cuss at the nursing staff, patients nurse and Dr Daly. Paola, Rehab Tech notified and spoke with the patient in the patients room 317. Paola assisted with giving the patient medication.
--- NOTE | 2020-09-25 13:31 | NUR ---
SW met with patient to complete intake. Patient states that she lives in [place] with her kids and Taj [phone]. Patient states that she does not utilize DME and is independent with ADL's. Patient states that her PCP is Dr. Meeks, obtains medications from [facility], and is able to afford her medications. Patient provides that she has not utilized HH services in the past, and does not have DPOA-HC. Patient states that she does not wish to appoint anyone at this time, but would like to review the documentation. SW provided DPOA-HC documenation and reviewed information. Patient states that she will contact SW when ready to complete document. Patient states that her plan is to return to her home in [place] upon DC. SW will continue to follow.
--- NOTE | 2020-09-25 13:35 | NUR ---
Patient taken by EMS to [facility]. Patient did "flip" the nursing staff when she was leaving. Discharge paperwork given to EMS. No further needs expressed from the patient. Sales Service Rep aware of incident of when the patient left.
== END 2020-09-25 13:35 | disposition short-term general hospital (02) ==
LOC: COL.ER 04:31 → MEDICAL 06:02
PROVIDERS: Emergency Medicine; Physician Assistant; ADMIT Internal Medicine
DX: M32.12 Pericarditis in systemic lupus erythematosus (principal); G89.29 Other chronic pain; I13.0 Hypertensive heart and chronic kidney disease with heart failure and stage 1 through stage 4 chronic kidney disease, or unspecified chronic kidney disease; I50.20 Unspecified systolic (congestive) heart failure; I73.1 Thromboangiitis obliterans [Buerger's disease]; I65.8 Occlusion and stenosis of other precerebral arteries; I31.3 Pericardial effusion (noninflammatory); I34.0 Nonrheumatic mitral (valve) insufficiency; D69.6 Thrombocytopenia, unspecified; D68.61 Antiphospholipid syndrome; G40.909 Epilepsy, unspecified, not intractable, without status epilepticus; M32.14 Glomerular disease in systemic lupus erythematosus; N18.32 Chronic kidney disease, stage 3b; E87.5 Hyperkalemia; E83.42 Hypomagnesemia; D63.8 Anemia in other chronic diseases classified elsewhere; F32.9 Major depressive disorder, single episode, unspecified; F41.9 Anxiety disorder, unspecified; Z86.73 Personal history of transient ischemic attack (TIA), and cerebral infarction without residual deficits; Z79.899 Other long term (current) drug therapy; Z79.891 Long term (current) use of opiate analgesic; Z87.891 Personal history of nicotine dependence
CPT/HCPCS: G0378; J1644; J1940; J2060; J2270; J2405; J3475; J7030; J7512; J7517

== ENCOUNTER 2020-11-21 18:08 | Observation (INO) | payer MEDICARE ==
[~2020-11-21] VITALS: Ht 160 cm; Wt 95.0 kg
[2020-11-21 19:05] LABS: COLLECTION METHOD CLEAN CATCH
[2020-11-21 19:09] LABS: PH 6 (5-8); SQUAMOUS EPITHELIAL 0-2 /hpf; URINE APPEARANCE Clear; URINE BACTERIA None Seen /hpf; URINE BILIRUBIN Negative (NEGATIVE); URINE BLOOD Negative (NEGATIVE); URINE COLOR Straw; URINE GLUCOSE Negative (NEGATIVE); URINE KETONE Negative (NEGATIVE); URINE LEUKOCYTE ESTERASE Negative (NEGATIVE); URINE NITRATE Negative (NEGATIVE); URINE PROTEIN(semi-quant) 3+ (NEGATIVE); URINE RBC 0-2 /hpf; URINE UROBILINOGEN Negative (NEGATIVE)
[2020-11-21 19:59] LABS: BASO % 0.5 % (0.0-2.0); EOS # 0.1 (0.0-0.7); EOS % 1.8 % (0-4.0); GRAN # 2.4 (1.4-6.5); GRAN % 61.8 % (42.2-75.2); LYMPH # 0.9 (1.2-3.4); MEAN CELL VOLUME 83 fl (80.0-100.0); MEAN CORPUSCULAR HGB CONC 31 g/dl (33.0-37.0); MEAN PLATELET VOLUME 12.9 fl (7.4-10.4); MONO # 0.5 (0.1-0.6); MONO % 12.6 % (1.7-9.3); PLATELET COUNT 205 K/mm3 (130-400); RED BLOOD COUNT 3.72 M/mm3 (4.10-5.30); REDCELL DISTRIBUTION WIDTH-CV 16.7 % (11.5-14.5)
[2020-11-21 20:01] LABS: HEMATOCRIT 30.9 % (37.0-47.0); HEMOGLOBIN 9.5 g/dl (12.5-16.0); MEAN CORPUSCULAR HEMOGLOBIN 26 pg (27.0-31.0)
[2020-11-21 20:18] LABS: C-REACTIVE PROTEIN 1.5 mg/dL (0.0-0.9)
[2020-11-21 20:19] LABS: ALANINE AMINOTRANSFERASE 9 U/L (4-34); ALBUMIN 3.3 gm/dL (3.5-5.0); ALKALINE PHOSPHATASE 87 U/L (50-136); ANION GAP 4 mmol/L (7-16); AST,SGOT 21 U/L (15-37); BILIRUBIN,TOTAL < 0.1 mg/dL (0.0-1.0); BLOOD UREA NITROGEN 40 mg/dL (7-17); CALCIUM 8.3 mg/dL (8.4-10.2); CARBON DIOXIDE 18 mmol/L (22-30); CHLORIDE 113 mmol/L (98-107); CREATININE, serum 2.49 (0.52-1.25); GLUCOSE 83 mg/dL (74-106); POTASSIUM 4.8 mmol/L (3.4-5.0); SODIUM 135 mmol/L (137-145); TOTAL PROTEIN 6.7 gm/dL (6.4-8.2)
[2020-11-21 20:28] LABS: TROPONIN-I 0.045 ng/mL (0.000-0.035)
[2020-11-21 22:25] VITALS: BP 148/85; PULSE 74; TEMP 98.1
[2020-11-22 03:34] VITALS: BP 121/77; PULSE 81; TEMP 98.5
--- NOTE | 2020-11-22 06:05 | NUR ---
PATIENT TO FLOOR AND SETTLRD INTO ROOM WITHOUT INCIDENT. PAIN MEDICATIONS GIVEN THROUGHOUT NIGHTWITH SOME RELEIF. NO OTHER C/O VOICED.
[2020-11-22 07:57] VITALS: BP 138/72; PULSE 78; TEMP 98
[2020-11-22 12:23] VITALS: BP 137/99; PULSE 93; TEMP 97.9
[2020-11-22 12:36] VITALS: BP 167/92
[2020-11-22] MEDS ORDERED: NORCO 325 MG-101 TAB PO (13:47)
--- NOTE | 2020-11-22 15:22 | NUR ---
Patient discharging, instructed to follow up as scheduled, instructed to take meds as prescribed, IV and tele removed, script for Richardson sent to [facility], she is leaving with her sister, DARIUS escorted her out
== END 2020-11-22 15:23 | disposition home or self-care (01) ==
LOC: COL.ER 18:08 → MEDICAL 21:52
PROVIDERS: Emergency Medicine; Nurse Practitioner; ADMIT Student in an Organized Health Care Education/Training Program
DX: R06.09 Other forms of dyspnea (principal); R53.1 Weakness; R42 Dizziness and giddiness; F32.9 Major depressive disorder, single episode, unspecified; I11.0 Hypertensive heart disease with heart failure; F41.9 Anxiety disorder, unspecified; I31.9 Disease of pericardium, unspecified; I50.22 Chronic systolic (congestive) heart failure; I73.00 Raynaud's syndrome without gangrene; M32.9 Systemic lupus erythematosus, unspecified; N05.9 Unspecified nephritic syndrome with unspecified morphologic changes; Z86.73 Personal history of transient ischemic attack (TIA), and cerebral infarction without residual deficits; R56.9 Unspecified convulsions; D64.9 Anemia, unspecified; I73.1 Thromboangiitis obliterans [Buerger's disease]; Z87.891 Personal history of nicotine dependence
CPT/HCPCS: 99223-AI; G0378; J1170; J1644; J2060; J2405; J7030; J7517

== ENCOUNTER 2021-01-17 20:54 | Emergency (ER) | payer MEDICARE ==
[~2021-01-17] VITALS: Ht 160 cm; Wt 94.1 kg
[2021-01-17 21:10] VITALS: BP 144/95; PULSE 90; TEMP 98
== END 2021-01-17 22:29 | disposition left against medical advice (07) ==
LOC: COL.ER 20:54
DX: R09.81 Nasal congestion (principal); I10 Essential (primary) hypertension; M32.9 Systemic lupus erythematosus, unspecified; F32.9 Major depressive disorder, single episode, unspecified; Z79.899 Other long term (current) drug therapy

== ENCOUNTER 2021-01-19 10:30 | Emergency (ER) | payer MEDICARE ==
[~2021-01-19] VITALS: Ht 160 cm; Wt 93.6 kg
[2021-01-19 10:34] VITALS: TEMP 98.3
[2021-01-19 11:00] LABS: BASO % 0.6 % (0.0-2.0); EOS # 0.1 (0.0-0.7); EOS % 1.8 % (0-4.0); GRAN # 2.3 (1.4-6.5); GRAN % 68.6 % (42.2-75.2); HEMATOCRIT 35.9 % (37.0-47.0); LYMPH # 0.6 (1.2-3.4); LYMPH % 16.7 % (20.0-51.0); MEAN CELL VOLUME 83 fl (80.0-100.0); MEAN CORPUSCULAR HEMOGLOBIN 25 pg (27.0-31.0); MEAN CORPUSCULAR HGB CONC 31 g/dl (33.0-37.0); MONO # 0.4 (0.1-0.6); PLATELET COUNT 137 K/mm3 (130-400); RED BLOOD COUNT 4.35 M/mm3 (4.10-5.30); REDCELL DISTRIBUTION WIDTH-CV 15.2 % (11.5-14.5)
[2021-01-19 11:09] LABS: ALANINE AMINOTRANSFERASE 6 U/L (4-34); ALBUMIN 3.8 gm/dL (3.5-5.0); ALKALINE PHOSPHATASE 88 U/L (50-136); ANION GAP 9 mmol/L (7-16); AST,SGOT 20 U/L (15-37); BILIRUBIN,TOTAL < 0.1 mg/dL (0.0-1.0); BLOOD UREA NITROGEN 25 mg/dL (7-17); CARBON DIOXIDE 17 mmol/L (22-30); CHLORIDE 113 mmol/L (98-107); CREATININE, serum 2.59 (0.52-1.25); GLUCOSE 79 mg/dL (74-106); POTASSIUM 4.1 mmol/L (3.4-5.0); SODIUM 139 mmol/L (137-145); TOTAL PROTEIN 7.8 gm/dL (6.4-8.2)
[2021-01-19 11:23] LABS: TROPONIN-I 0.097 ng/mL (0.000-0.035)
[2021-01-19 18:05] VITALS: BP 137/88; PULSE 82
== END 2021-01-19 18:05 | disposition short-term general hospital (02) ==
LOC: COL.ER 10:30
PROVIDERS: Physician Assistant
DX: D63.1 Anemia in chronic kidney disease (principal); I12.9 Hypertensive chronic kidney disease with stage 1 through stage 4 chronic kidney disease, or unspecified chronic kidney disease; N18.4 Chronic kidney disease, stage 4 (severe); R79.89 Other specified abnormal findings of blood chemistry; D72.819 Decreased white blood cell count, unspecified; M32.9 Systemic lupus erythematosus, unspecified; F32.9 Major depressive disorder, single episode, unspecified; G40.909 Epilepsy, unspecified, not intractable, without status epilepticus; Z86.73 Personal history of transient ischemic attack (TIA), and cerebral infarction without residual deficits; Z87.891 Personal history of nicotine dependence; Z79.899 Other long term (current) drug therapy
CPT/HCPCS: J2060

== ENCOUNTER 2021-02-08 07:41 | Emergency (ER) | payer MEDICARE ==
[~2021-02-08] VITALS: Ht 160 cm; Wt 94.1 kg
[2021-02-08 07:43] VITALS: TEMP 98.3
[2021-02-08 08:10] LABS: BASO % 0.5 % (0.0-2.0); EOS # 0.1 (0.0-0.7); EOS % 3.1 % (0-4.0); GRAN # 2.6 (1.4-6.5); LYMPH # 0.8 (1.2-3.4); LYMPH % 20.1 % (20.0-51.0); MEAN CELL VOLUME 85 fl (80.0-100.0); MEAN CORPUSCULAR HGB CONC 30 g/dl (33.0-37.0); MEAN PLATELET VOLUME 12.6 fl (7.4-10.4); MONO # 0.3 (0.1-0.6); MONO % 7.8 % (1.7-9.3); PLATELET COUNT 203 K/mm3 (130-400); RED BLOOD COUNT 3.24 M/mm3 (4.10-5.30); REDCELL DISTRIBUTION WIDTH-CV 14.9 % (11.5-14.5)
[2021-02-08 08:13] LABS: HEMATOCRIT 27.4 % (37.0-47.0); HEMOGLOBIN 8.3 g/dl (12.5-16.0); MEAN CORPUSCULAR HEMOGLOBIN 26 pg (27.0-31.0)
[2021-02-08 08:14] LABS: ALANINE AMINOTRANSFERASE 8 U/L (4-34); ALKALINE PHOSPHATASE 64 U/L (50-136); ANION GAP 7 mmol/L (7-16); AST,SGOT 16 U/L (15-37); BILIRUBIN,TOTAL < 0.1 mg/dL (0.0-1.0); BLOOD UREA NITROGEN 27 mg/dL (7-17); CALCIUM 7.9 mg/dL (8.4-10.2); CARBON DIOXIDE 15 mmol/L (22-30); CHLORIDE 120 mmol/L (98-107); CREATININE, serum 2.22 (0.52-1.25); GLUCOSE 90 mg/dL (74-106); POTASSIUM 3.7 mmol/L (3.4-5.0); SODIUM 142 mmol/L (137-145); TOTAL PROTEIN 6.4 gm/dL (6.4-8.2)
[2021-02-08 08:32] LABS: TROPONIN-I 0.104 ng/mL (0.000-0.035)
[2021-02-08 08:48] LABS: C-REACTIVE PROTEIN 1.6 mg/dL (0.0-0.9)
[2021-02-08 08:54] LABS: ERYTHROCYTE SEDIMENTATION RATE 66 mm/hr (0-20)
[2021-02-08] MEDS ORDERED: PREDNISONE20 MG PO (09:06)
[2021-02-08 09:48] VITALS: BP 139/94; PULSE 65
== END 2021-02-08 09:55 | disposition home or self-care (01) ==
LOC: COL.ER 07:41
PROVIDERS: Emergency Medicine
DX: I31.9 Disease of pericardium, unspecified (principal); I12.9 Hypertensive chronic kidney disease with stage 1 through stage 4 chronic kidney disease, or unspecified chronic kidney disease; N18.4 Chronic kidney disease, stage 4 (severe); D63.1 Anemia in chronic kidney disease; R79.89 Other specified abnormal findings of blood chemistry; M32.9 Systemic lupus erythematosus, unspecified; Z86.73 Personal history of transient ischemic attack (TIA), and cerebral infarction without residual deficits; Z87.891 Personal history of nicotine dependence; Z79.899 Other long term (current) drug therapy
CPT/HCPCS: J1170; J2405; J7512

== ENCOUNTER 2021-05-21 17:43 | Emergency (ER) | payer MEDICARE ==
[~2021-05-21] VITALS: Ht 160 cm; Wt 101.4 kg
[2021-05-21 17:52] VITALS: TEMP 97.3
[2021-05-21 18:57] LABS: BASO % 0.5 % (0.0-2.0); EOS # 0.1 K/mm3 (0.0-0.7); EOS % 1.8 % (0-4.0); GRAN # 2.6 K/mm3 (1.4-6.5); GRAN % 59.6 % (42.2-75.2); HEMATOCRIT 30.5 % (37.0-47.0); HEMOGLOBIN 9.3 g/dl (12.5-16.0); LYMPH # 1.2 K/mm3 (1.2-3.4); LYMPH % 26.5 % (20.0-51.0); MEAN CELL VOLUME 85 fl (80.0-100.0); MEAN CORPUSCULAR HEMOGLOBIN 26 pg (27.0-31.0); MEAN CORPUSCULAR HGB CONC 31 g/dl (33.0-37.0); MEAN PLATELET VOLUME 10.7 fl (7.4-10.4); MONO # 0.5 K/mm3 (0.1-0.6); MONO % 11.1 % (1.7-9.3); PLATELET COUNT 142 K/mm3 (130-400); RED BLOOD COUNT 3.59 M/mm3 (4.10-5.30); REDCELL DISTRIBUTION WIDTH-CV 14.9 % (11.5-14.5)
[2021-05-21 19:16] LABS: ALBUMIN 2.7 gm/dL (3.5-5.0); BILIRUBIN,TOTAL 0.2 mg/dL (0.2-1.2); CALCIUM 8.1 mg/dL (8.4-10.2); CREATININE, serum 2.86 mg/dL (0.57-1.11); POTASSIUM 5.5 mmol/L (3.5-4.5); TOTAL PROTEIN 6.5 gm/dL (6.2-8.1)
[2021-05-21 19:18] LABS: INR 1.1 (0.8-3.0); PROTHROMBIN TIME 11.7 SECONDS (9.7-12.8)
[2021-05-21 19:23] LABS: TROPONIN-I 0.111 ng/mL (0.00-0.033)
[2021-05-21] MEDS ORDERED: NORCO 325 MG-51 TAB PO (20:23)
[2021-05-21 20:49] VITALS: BP 139/89; PULSE 91
== END 2021-05-21 20:50 | disposition home or self-care (01) ==
LOC: COL.ER 17:43
PROVIDERS: Personal Emergency Response Attendant
DX: I31.9 Disease of pericardium, unspecified (principal); M32.9 Systemic lupus erythematosus, unspecified; R79.89 Other specified abnormal findings of blood chemistry; D63.1 Anemia in chronic kidney disease; Z87.891 Personal history of nicotine dependence
CPT/HCPCS: J1200; J2270; J2405; J3010

== ENCOUNTER 2021-06-12 19:45 | Emergency (ER) | payer MEDICARE ==
[~2021-06-12] VITALS: Ht 160 cm; Wt 100.0 kg
[2021-06-12 20:12] VITALS: TEMP 98.5
[2021-06-12 22:19] LABS: MEAN CELL VOLUME 84 fl (80.0-100.0); MEAN CORPUSCULAR HGB CONC 31 g/dl (33.0-37.0); PLATELET COUNT 142 K/mm3 (130-400); RED BLOOD COUNT 3.73 M/mm3 (4.10-5.30); REDCELL DISTRIBUTION WIDTH-CV 15.2 % (11.5-14.5)
[2021-06-12 22:25] LABS: HEMATOCRIT 31.2 % (37.0-47.0); HEMOGLOBIN 9.6 g/dl (12.5-16.0); MEAN CORPUSCULAR HEMOGLOBIN 26 pg (27.0-31.0)
[2021-06-12 22:37] LABS: BILIRUBIN,TOTAL 0.2 mg/dL (0.2-1.2); C-REACTIVE PROTEIN 1.08 mg/dL (0.00-0.50); CALCIUM 8.4 mg/dL (8.4-10.2); CREATININE, serum 2.73 mg/dL (0.57-1.11); POTASSIUM 5.2 mmol/L (3.5-4.5); TOTAL PROTEIN 7.2 gm/dL (6.2-8.1)
[2021-06-12 22:47] LABS: TROPONIN-I 0.37 ng/mL (0.00-0.033)
[2021-06-12 22:53] LABS: BAND 1 % (0-10); EOSINOPHIL 2 % (0-4); LYMPHOCYTE 42 % (20.0-51.0); NEUTROPHILS 52 % (42.0-75.2); PLATELET ESTIMATE NORMAL (NORMAL)
[2021-06-12 22:55] LABS: ERYTHROCYTE SEDIMENTATION RATE 57 mm/hr (0-20)
[2021-06-13 03:00] VITALS: BP 144/70; PULSE 76
== END 2021-06-13 03:00 | disposition home or self-care (01) ==
LOC: COL.ER 19:45
PROVIDERS: Family Medicine
DX: I31.9 Disease of pericardium, unspecified (principal); N18.4 Chronic kidney disease, stage 4 (severe)
CPT/HCPCS: J1170; J1200; J2060; J2405

== ENCOUNTER 2021-06-15 17:51 | Emergency (ER) | payer MEDICARE ==
[~2021-06-15] VITALS: Ht 160 cm; Wt 100.0 kg
[2021-06-15 19:33] LABS: BASO % 0.3 % (0.0-2.0); EOS # 0.1 K/mm3 (0.0-0.7); EOS % 2.8 % (0-4.0); GRAN # 1.9 K/mm3 (1.4-6.5); GRAN % 53.6 % (42.2-75.2); LYMPH # 1.1 K/mm3 (1.2-3.4); LYMPH % 31.3 % (20.0-51.0); MEAN CELL VOLUME 84 fl (80.0-100.0); MEAN CORPUSCULAR HGB CONC 30 g/dl (33.0-37.0); MEAN PLATELET VOLUME 10.7 fl (7.4-10.4); MONO # 0.4 K/mm3 (0.1-0.6); MONO % 11.7 % (1.7-9.3); PLATELET COUNT 145 K/mm3 (130-400); RED BLOOD COUNT 3.47 M/mm3 (4.10-5.30); REDCELL DISTRIBUTION WIDTH-CV 15.2 % (11.5-14.5)
[2021-06-15 19:34] LABS: HEMATOCRIT 29.3 % (37.0-47.0); HEMOGLOBIN 8.9 g/dl (12.5-16.0); MEAN CORPUSCULAR HEMOGLOBIN 26 pg (27.0-31.0)
[2021-06-15 19:57] LABS: BILIRUBIN,TOTAL 0.1 mg/dL (0.2-1.2); CALCIUM 8.3 mg/dL (8.4-10.2); CREATININE, serum 2.72 mg/dL (0.57-1.11); POTASSIUM 5.2 mmol/L (3.5-4.5); TOTAL PROTEIN 6.9 gm/dL (6.2-8.1)
[2021-06-15 20:10] LABS: TROPONIN-I 0.353 ng/mL (0.00-0.033)
[2021-06-15 21:11] VITALS: BP 149/80; PULSE 69; TEMP 98
[2021-06-15] MEDS ORDERED: NORVASC 10MG10 MG PO (21:12)
== END 2021-06-15 21:12 | disposition home or self-care (01) ==
LOC: COL.ER 17:51
PROVIDERS: Physician Assistant
DX: D63.1 Anemia in chronic kidney disease (principal); M32.12 Pericarditis in systemic lupus erythematosus; N18.4 Chronic kidney disease, stage 4 (severe); G89.29 Other chronic pain; I73.00 Raynaud's syndrome without gangrene
CPT/HCPCS: J1790

== ENCOUNTER 2021-06-21 12:29 | Emergency (ER) | payer MEDICARE ==
[~2021-06-21] VITALS: Ht 157.5 cm; Wt 100.0 kg
[2021-06-21 12:43] VITALS: TEMP 97.8
[2021-06-21 14:13] LABS: BASO % 0.7 % (0.0-2.0); EOS # 0.1 K/mm3 (0.0-0.7); EOS % 2.2 % (0-4.0); GRAN # 2.3 K/mm3 (1.4-6.5); GRAN % 56.1 % (42.2-75.2); HEMOGLOBIN 10.4 g/dl (12.5-16.0); LYMPH # 1.2 K/mm3 (1.2-3.4); LYMPH % 30.5 % (20.0-51.0); MEAN CELL VOLUME 83 fl (80.0-100.0); MEAN CORPUSCULAR HEMOGLOBIN 25 pg (27.0-31.0); MEAN CORPUSCULAR HGB CONC 31 g/dl (33.0-37.0); MEAN PLATELET VOLUME 12.9 fl (7.4-10.4); MONO # 0.4 K/mm3 (0.1-0.6); MONO % 10.3 % (1.7-9.3); PLATELET COUNT 253 K/mm3 (130-400); RED BLOOD COUNT 4.11 M/mm3 (4.10-5.30); REDCELL DISTRIBUTION WIDTH-CV 15.1 % (11.5-14.5)
[2021-06-21 14:29] LABS: ALBUMIN 3.4 gm/dL (3.5-5.0); ALKALINE PHOSPHATASE 88 U/L (40-150); ANION GAP 11 mmol/L (7-16); AST,SGOT 11 U/L (5-34); BILIRUBIN,TOTAL 0.3 mg/dL (0.2-1.2); BLOOD UREA NITROGEN 38 mg/dL (7-19); CALCIUM 8.7 mg/dL (8.4-10.2); CARBON DIOXIDE 16 mmol/L (22-29); CHLORIDE 112 mmol/L (98-107); GLUCOSE 73 mg/dL (70-99); POTASSIUM 5.2 mmol/L (3.5-4.5); SODIUM 139 mmol/L (136-145); TOTAL PROTEIN 7.9 gm/dL (6.2-8.1)
[2021-06-21 14:30] LABS: ALANINE AMINOTRANSFERASE < 6 U/L (0-55)
[2021-06-21 14:47] LABS: ACETAMINOPHEN < 1.0 ug/mL (10-30); ALCOHOL(ethanol),MEDICAL < 10 mg/dL (0-10); SALICYLATE < 5.0 mg/dL (15.0-30.0)
[2021-06-21 16:46] LABS: TROPONIN-I 0.112 ng/mL (0.00-0.033)
--- NOTE | 2021-06-21 16:49 | NUR ---
Sap Basis Consultant responded to consult in the ED as patient requested to speak with social work. SW met with patient who stated she just wanted someone to talk to. Patient reports she has chronic illnesses that have made it difficult for her to see the point in living. Patient states she is not suicidal and could never end her own life. Patient reports she was at the [facility] last night and plans to go back there tonight. Patient reports she has had a hard life and is currently going through a divorce from her , which has been difficult for her. Patient is open to having a therapist set up with [facility]. Patient states she also sees a palliative care team at [facility] and her palliative physician is Dr. Dana Pino. SW contacted [facility] to give referral for outpatient therapy. The admissions team will follow up with patient on Saturday.
[2021-06-21 19:36] VITALS: BP 136/88; PULSE 91
== END 2021-06-21 19:36 | disposition home or self-care (01) ==
LOC: COL.ER 12:29
PROVIDERS: Nurse Practitioner
DX: R07.9 Chest pain, unspecified (principal); R74.8 Abnormal levels of other serum enzymes; F41.9 Anxiety disorder, unspecified; M32.9 Systemic lupus erythematosus, unspecified; Z79.899 Other long term (current) drug therapy
CPT/HCPCS: J1170; J1200; J2060; J2405; J7030

== ENCOUNTER 2021-12-19 06:39 | Emergency (ER) | payer MEDICARE ==
[~2021-12-19] VITALS: Ht 160 cm; Wt 96.4 kg
[~2021-12-19 06:39] MED LIST changes: +CYMBALTA 30MG30 MG PO; +KLONOPIN 1MG1 MG PO; +ZOFRAN ODT8 MG PO
[2021-12-19 06:49] VITALS: TEMP 98.3
[2021-12-19 07:23] LABS: BASO % 0.5 % (0.0-2.0); EOS # 0.1 K/mm3 (0.0-0.7); EOS % 1.6 % (0.0-4.0); GRAN % 52.2 % (42.2-75.2); HEMATOCRIT 34.7 % (37.0-47.0); HEMOGLOBIN 10.4 g/dl (12.5-16.0); LYMPH # 1.4 K/mm3 (1.2-3.4); MEAN CELL VOLUME 86 fl (80.0-100.0); MEAN CORPUSCULAR HEMOGLOBIN 26 pg (27-31); MEAN CORPUSCULAR HGB CONC 30 g/dl (33.0-37.0); MEAN PLATELET VOLUME 11.5 fl (7.4-10.4); MONO # 0.4 K/mm3 (0.1-0.6); MONO % 9.4 % (1.7-9.3); PLATELET COUNT 244 K/mm3 (130-400); RED BLOOD COUNT 4.02 M/mm3 (4.10-5.30); REDCELL DISTRIBUTION WIDTH-CV 15.6 % (11.5-14.5)
[2021-12-19 07:43] LABS: ALKALINE PHOSPHATASE 74 U/L (40-150); ANION GAP 11 mmol/L (7-16); AST,SGOT 9 U/L (5-34); BILIRUBIN,TOTAL 0.2 mg/dL (0.2-1.2); BLOOD UREA NITROGEN 30 mg/dL (7-19); CALCIUM 8.4 mg/dL (8.4-10.2); CARBON DIOXIDE 19 mmol/L (22-29); CHLORIDE 111 mmol/L (98-107); CREATININE, serum 2.84 mg/dL (0.57-1.11); GLUCOSE 89 mg/dL (70-99); POTASSIUM 4.4 mmol/L (3.5-4.5); SODIUM 141 mmol/L (136-145); TOTAL PROTEIN 7.1 gm/dL (6.2-8.1)
[2021-12-19 07:44] LABS: ALANINE AMINOTRANSFERASE < 6 U/L (0-55)
[2021-12-19 09:05] VITALS: BP 145/87; PULSE 77
== END 2021-12-19 09:05 | disposition home or self-care (01) ==
LOC: COL.ER 06:39
PROVIDERS: Emergency Medicine
DX: E16.2 Hypoglycemia, unspecified (principal); Z28.310 Unvaccinated for COVID-19
CPT/HCPCS: J7042

== ENCOUNTER 2022-02-22 19:20 | Emergency (ER) | payer MEDICARE ==
[~2022-02-22] VITALS: Ht 160 cm; Wt 99.5 kg
[2022-02-22 19:42] VITALS: TEMP 98.5
[2022-02-22 20:18] LABS: BASO % 0.2 % (0.0-2.0); EOS # 0.1 K/mm3 (0.0-0.7); EOS % 1.7 % (0.0-4.0); GRAN # 2.5 K/mm3 (1.4-6.5); GRAN % 59.4 % (42.2-75.2); LYMPH % 22.8 % (20.0-51.0); MEAN CELL VOLUME 85 fl (80.0-100.0); MEAN CORPUSCULAR HGB CONC 31 g/dl (33.0-37.0); MEAN PLATELET VOLUME 10.3 fl (7.4-10.4); MONO # 0.7 K/mm3 (0.1-0.6); MONO % 15.7 % (1.7-9.3); PLATELET COUNT 197 K/mm3 (130-400); RED BLOOD COUNT 3.73 M/mm3 (4.10-5.30); REDCELL DISTRIBUTION WIDTH-CV 14.2 % (11.5-14.5)
[2022-02-22 20:21] LABS: HEMATOCRIT 31.5 % (37.0-47.0); HEMOGLOBIN 9.6 g/dl (12.5-16.0); MEAN CORPUSCULAR HEMOGLOBIN 26 pg (27-31); PROTHROMBIN TIME 11.9 SECONDS (9.7-12.8)
[2022-02-22 20:24] LABS: PARTIAL THROMBOPLASTIN TIME 33.9 SECONDS (26.0-37.0)
[2022-02-22 20:32] LABS: ALBUMIN 2.8 gm/dL (3.5-5.0); ALKALINE PHOSPHATASE 78 U/L (40-150); ANION GAP 11 mmol/L (7-16); AST,SGOT 9 U/L (5-34); BILIRUBIN,TOTAL 0.2 mg/dL (0.2-1.2); BLOOD UREA NITROGEN 29 mg/dL (7-19); C-REACTIVE PROTEIN 2.95 mg/dL (0.00-0.50); CALCIUM 8.4 mg/dL (8.4-10.2); CARBON DIOXIDE 15 mmol/L (22-29); CHLORIDE 111 mmol/L (98-107); GLUCOSE 91 mg/dL (70-99); POTASSIUM 4.9 mmol/L (3.5-4.5); SODIUM 137 mmol/L (136-145); TOTAL PROTEIN 6.9 gm/dL (6.2-8.1)
[2022-02-22 20:36] LABS: ALANINE AMINOTRANSFERASE < 6 U/L (0-55)
[2022-02-22 20:38] LABS: TROPONIN-I 0.017 ng/mL (0.00-0.033)
[2022-02-22 20:49] LABS: ERYTHROCYTE SEDIMENTATION RATE 52 mm/hr (0-20)
[2022-02-22 21:26] VITALS: BP 145/90; PULSE 87
== END 2022-02-22 21:38 | disposition home or self-care (01) ==
LOC: COL.ER 19:20
PROVIDERS: Family Medicine
DX: I51.7 Cardiomegaly (principal); Z28.310 Unvaccinated for COVID-19
CPT/HCPCS: J1170; J2405; J3010

== ENCOUNTER 2024-03-23 11:37 | Emergency (ER) | payer MEDICARE ==
[~2024-03-23] VITALS: Ht 160 cm; Wt 90.5 kg
[~2024-03-23 11:37] MED LIST changes: +APRESOLINE50 MG PO; +CYMBALTA 60MG60 MG PO; +DILAUDID 4MG TAB4 MG PO; +DILAUDID8 M1 PO; +LASIX 40MG TABL40 MG PO; +RENVELA800 MG PO; +XANAX 0.5MG0.5 MG PO
[2024-03-23 11:44] VITALS: TEMP 98.2
[2024-03-23 12:30] LABS: BASO % 0.2 % (0.0-2.0); EOS # 0.1 K/mm3 (0.0-0.7); GRAN # 4.1 K/mm3 (1.4-6.5); GRAN % 64.5 % (42.2-75.2); LYMPH # 1.5 K/mm3 (1.2-3.4); LYMPH % 23.6 % (20.0-51.0); MEAN CELL VOLUME 88 fl (80.0-100.0); MEAN CORPUSCULAR HGB CONC 30 g/dl (33.0-37.0); MEAN PLATELET VOLUME 10.7 fl (7.4-10.4); MONO # 0.6 K/mm3 (0.1-0.6); MONO % 9.1 % (1.7-9.3); PLATELET COUNT 234 K/mm3 (130-400); RED BLOOD COUNT 2.91 M/mm3 (4.10-5.30); REDCELL DISTRIBUTION WIDTH-CV 16.7 % (11.5-14.5)
[2024-03-23 12:44] LABS: ALBUMIN 2.9 g/dL (3.5-5.0); BILIRUBIN,TOTAL 0.2 mg/dL (0.2-1.2); CALCIUM 7.9 mg/dL (8.4-10.2); CREATININE, serum 4.05 mg/dL (0.57-1.11); HEMATOCRIT 25.7 % (37.0-47.0); HEMOGLOBIN 7.6 g/dl (12.5-16.0); MEAN CORPUSCULAR HEMOGLOBIN 26 pg (27-31); POTASSIUM 4.2 mEq/L (3.5-4.5); TOTAL PROTEIN 6.7 g/dl (6.2-8.1)
[2024-03-23 12:58] LABS: TROPONIN-I 0.116 ng/mL (0.00-0.033)
[2024-03-23] MEDS ORDERED: HYDROmorphone 0.5 MG/0.5 ML SYRINGE IV ONE (13:30)
[2024-03-23 16:35] VITALS: BP 183/118; PULSE 80
[2024-03-24] MEDS ORDERED: ZOFRAN ODT4 MG PO (15:08)
== END 2024-03-23 16:35 | disposition home or self-care (01) ==
LOC: COL.ER 11:37
PROVIDERS: Physician Assistant
DX: I12.9 Hypertensive chronic kidney disease with stage 1 through stage 4 chronic kidney disease, or unspecified chronic kidney disease (principal); N18.32 Chronic kidney disease, stage 3b; M32.9 Systemic lupus erythematosus, unspecified; R79.89 Other specified abnormal findings of blood chemistry
CPT/HCPCS: J1170

== ENCOUNTER 2024-03-24 12:14 | Emergency (ER) | payer MEDICARE ==
[~2024-03-24] VITALS: Ht 160 cm; Wt 90.5 kg
[2024-03-24 12:23] VITALS: TEMP 98.2
[2024-03-24] MEDS ORDERED: NS 1,000 ML IV ONE ×2 (13:30→15:15)
[2024-03-24] MEDS ORDERED: droPERidol 2.5 MG/ML 2 ML VIAL IV ONE (13:30)
[2024-03-24 13:59] LABS: BASO % 0.2 % (0.0-2.0); EOS # 0.1 K/mm3 (0.0-0.7); EOS % 1.4 % (0.0-4.0); GRAN # 3.9 K/mm3 (1.4-6.5); GRAN % 74.9 % (42.2-75.2); LYMPH # 0.7 K/mm3 (1.2-3.4); LYMPH % 13.4 % (20.0-51.0); MEAN CELL VOLUME 88 fl (80.0-100.0); MEAN CORPUSCULAR HGB CONC 30 g/dl (33.0-37.0); MEAN PLATELET VOLUME 10.7 fl (7.4-10.4); MONO # 0.5 K/mm3 (0.1-0.6); MONO % 9.7 % (1.7-9.3); PLATELET COUNT 214 K/mm3 (130-400); RED BLOOD COUNT 3.04 M/mm3 (4.10-5.30); REDCELL DISTRIBUTION WIDTH-CV 16.5 % (11.5-14.5)
[2024-03-24] MEDS ORDERED: oxyCODONE 5 MG TAB PO ONE (14:00)
[2024-03-24 14:01] LABS: HEMATOCRIT 26.6 % (37.0-47.0); MEAN CORPUSCULAR HEMOGLOBIN 26 pg (27-31)
[2024-03-24 14:17] LABS: ALBUMIN 2.7 g/dL (3.5-5.0); BILIRUBIN,TOTAL 0.3 mg/dL (0.2-1.2); CALCIUM 7.8 mg/dL (8.4-10.2); CREATININE, serum 3.71 mg/dL (0.57-1.11); POTASSIUM 4.5 mEq/L (3.5-4.5); TOTAL PROTEIN 6.7 g/dl (6.2-8.1)
[2024-03-24 14:24] LABS: TROPONIN-I 0.084 ng/mL (0.00-0.033)
[2024-03-24] MEDS ORDERED: ZOFRAN ODT4 MG PO (15:08)
[2024-03-24 16:19] VITALS: BP 154/102; PULSE 87
== END 2024-03-24 16:18 | disposition home or self-care (01) ==
LOC: COL.ER 12:14
PROVIDERS: Personal Emergency Response Attendant
DX: R07.89 Other chest pain (principal); R11.2 Nausea with vomiting, unspecified; N28.9 Disorder of kidney and ureter, unspecified; D64.9 Anemia, unspecified
CPT/HCPCS: J1790; J7030

== ENCOUNTER 2024-05-27 23:45 | Emergency (ER) | payer MEDICARE ==
[~2024-05-27] VITALS: Ht 160 cm; Wt 87.3 kg
[~2024-05-27 23:45] MED LIST changes: +NS 1,000 ML IV ONE; +Ondansetron 4 MG/2 ML VIAL IV ONE; +Promethazine 50 MG/ML 1 ML VIAL IM ONE
[2024-05-28 01:22] LABS: BASO % 0.2 % (0.0-2.0); EOS % 0.4 % (0.0-4.0); GRAN # 7.7 K/mm3 (1.4-6.5); GRAN % 86.5 % (42.2-75.2); HEMOGLOBIN 10.6 g/dl (12.5-16.0); LYMPH # 0.7 K/mm3 (1.2-3.4); LYMPH % 8.3 % (20.0-51.0); MEAN CELL VOLUME 86 fl (80.0-100.0); MEAN CORPUSCULAR HEMOGLOBIN 26 pg (27-31); MEAN CORPUSCULAR HGB CONC 30 g/dl (33.0-37.0); MEAN PLATELET VOLUME 11.9 fl (7.4-10.4); MONO # 0.3 K/mm3 (0.1-0.6); MONO % 3.8 % (1.7-9.3); PLATELET COUNT 301 K/mm3 (130-400); RED BLOOD COUNT 4.13 M/mm3 (4.10-5.30); REDCELL DISTRIBUTION WIDTH-CV 15.2 % (11.5-14.5)
[2024-05-28 01:24] LABS: HEMATOCRIT 35.4 % (37.0-47.0)
[2024-05-28] MEDS ORDERED: HYDROmorphone 0.5 MG/0.5 ML SYRINGE IM ONE (01:30)
[2024-05-28 01:43] LABS: ALBUMIN 3.1 g/dL (3.5-5.0); BILIRUBIN,TOTAL 0.2 mg/dL (0.2-1.2); C-REACTIVE PROTEIN 0.54 mg/dL (0.00-0.50); CREATININE, serum 4.48 mg/dL (0.57-1.11); POTASSIUM 4.5 mEq/L (3.5-4.5); TOTAL PROTEIN 8.3 g/dl (6.2-8.1)
[2024-05-28 02:13] LABS: TROPONIN-I 0.084 ng/mL (0.00-0.033)
[2024-05-28] MEDS ORDERED: Home Ondansetron ODT 4 MG #2 ODT/PACK PO ONE (02:45)
[2024-05-28 02:49] VITALS: BP 112/90; PULSE 84; TEMP 98.1
== END 2024-05-28 02:49 | disposition home or self-care (01) ==
LOC: COL.ER 23:45
PROVIDERS: Emergency Medicine
DX: R07.89 Other chest pain (principal); G89.29 Other chronic pain; R11.2 Nausea with vomiting, unspecified; R19.7 Diarrhea, unspecified; R10.84 Generalized abdominal pain; R79.89 Other specified abnormal findings of blood chemistry; Z79.891 Long term (current) use of opiate analgesic
CPT/HCPCS: J1171; J2550